=== PATIENT | male | born 1940 | race Two or more races ===

== ENCOUNTER 2016-08-26 19:30 | Inpatient (IN) | payer MEDICARE, OTHER ==
[~2016-08-26] VITALS: Ht 177.8 cm; Wt 99.8 kg
[~2016-08-26 19:30] MED LIST: ACET-2605 PO; ALBU2.5V38 NEB; AMIN30LI4 PO; ATOR10TA GT; BISA10SU61 RC; CHLO15MO2 MM; DOCU-170 PO; DRON400T2 GT; ERYT200S16 PO; IPRA0.2S49 NEB; IPRA0.2S9 IH; MAGN400O6 GT; METF500T PO; MONT10TA22 GT; NA P133E RC; POTA20PA15 PO; RIVA10TA PO; SPIR50TA3 PO; TRAM50TA2 PO; TYL2T GT
[2016-08-26] MEDS ORDERED: IV NS 0.9% 500 ML BAG IV ONE (20:00)
[2016-08-26] MEDS ORDERED: IV NS 0.9% 500 ML IV ONE (20:07)
[2016-08-26] MEDS ORDERED: IV SET PRIMARY 1 EA INFUS.SET MC ONE ×2 (20:07→21:17)
[2016-08-26 20:44] LABS: KETONES,URINE NEGATIVE (NEGATIVE); LEUKOCYTE ESTERASE ,URINE 3+ (NEGATIVE)
[2016-08-26 20:47] LABS: ADD UA MICROSCOPIC YES
[2016-08-26 20:51] LABS: ADD URINE CULTURE YES; WBC,URINE 21-50 /HPF (0-3)
[2016-08-26 20:53] LABS: INR 1.1 (0.87-1.13); PROTHROMBIN TIME 11.9 SECS (9.5-12.7)
[2016-08-26 20:58] LABS: ALANINE AMINOTRANSFERASE 15 U/L (12-78); ALBUMIN 1.8 g/dL (3.4-5.0); ANION GAP 12 (5-14); ASPARTATE AMINOTRANSFERASE 14 U/L (15-37); BILIRUBIN,DIRECT 0.1 mg/dL (0.0-0.2); BILIRUBIN,TOTAL 0.3 mg/dL (0.2-1.0); CALCIUM, SERUM 8.6 mg/dL (8.5-10.1); CARBON DIOXIDE 27 mmol/L (21-32); CHLORIDE 110 mmol/L (98-107); CREATININE 1.4 mg/dL (0.6-1.3); GLUCOSE 95 mg/dL (74-106); INDIRECT BILIRUBIN 0.2 mg/dL (0.0-1.1); POTASSIUM 3.7 mmol/L (3.5-5.1); SODIUM SERUM 145 mmol/L (136-145); TOTAL PROTEIN, SERUM 7.5 g/dL (6.4-8.2); UREA NITROGEN, BLOOD 36 mg/dL (7-18)
[2016-08-26 20:59] LABS: TROPONIN I < 0.017 ng/mL (0.00-0.056)
[2016-08-26 21:03] LABS: BASOPHILS % (AUTO) 0.1 % (0.0-2.0); DIFF TOTAL % 100 %; EOSINOPHILS # (AUTO) 0.3 /CMM (0.0-0.7); EOSINOPHILS % (AUTO) 1.5 % (0.0-6.0); HEMATOCRIT 31 % (39-51); HEMOGLOBIN 9.7 g/dL (13.5-17.5); LYMPHOCYTES # (AUTO) 1.3 /CMM (0.8-4.8); LYMPHOCYTES % (AUTO) 7.6 % (20.0-44.0); MEAN CORPUSCULAR HEMOGLOBIN 28 PG (26.0-33.0); MEAN CORPUSCULAR HGB CONC 31 g/dl (31.0-36.0); MEAN CORPUSCULAR VOLUME 89 fL (80-96); MONOCYTES % (AUTO) 5.8 % (2.0-12.0); PLATELET COUNT (AUTO) 450 /CMM (150-450); RED BLOOD CELL COUNT(AUTO) 3.54 MIL/uL (4.5-6.0); WHITE BLOOD COUNT (AUTO) 17.6 K/uL (4.3-11.0)
[2016-08-26 21:05] LABS: THYROID STIMULATING HORMONE 1.387 uIU/mL (0.358-3.74)
[2016-08-26] MEDS ORDERED: IV SET PRIMARY PUMP SET 1 EA INFUS.SET MC ONE (21:17)
[2016-08-26] MEDS ORDERED: IV NS 0.9% 1,000 ML ONE (21:17)
[2016-08-26] MEDS ORDERED: LEVOFLOXACIN 750 MG /D5W 150ML 150 ML IV ONE (21:17)
[2016-08-26 21:23] LABS: BAND % (MANUAL) 6 % (0.0-5.0); EOSINOPHILS % (MANUAL) 4 % (0-4); LYMPHOCYTES % (MANUAL) 19 % (16-48)
[2016-08-26 21:24] LABS: ANISOCYTOSIS 1+; PLATELET ESTIMATE INCREASED
[2016-08-26] MEDS ORDERED: IV NS 0.9% 1,000 ML IV ONE (21:30)
[2016-08-26] MEDS ORDERED: LEVOFLOXACIN 750 MG /D5W 150ML PIGGYBACK IV ONE (21:30)
[2016-08-26] MEDS ORDERED: VITA1TAB20 GT (22:01)
[2016-08-26] MEDS ORDERED: LORA10TA7 PO (22:01)
[2016-08-26 22:18] LABS: ABG HCO3 21.8 mmol/L; ABG PCO2 54.9 mmHg (35.0-45.0); ABG PH 7.216 (7.350-7.450); ABG PO2 116.8 mmHg (75.0-100.0); ABG TOTAL HEMOGLOBIN 9.5 G/dL (13.5-18.0); ALLEN TEST Pass; AaDO2 105.3 mmHg; O2Hb 97.1 % (94.0-97.0)
[2016-08-26 23:30] VITALS: BP 106/59
[2016-08-27] VITALS (8 sets, daily range): BP systolic 90–121; BP diastolic 47–62
[2016-08-27] MEDS ORDERED: IV SET PRIMARY PUMP SET 1 EA INFUS.SET MC ONE (00:35)
[2016-08-27] MEDS ORDERED: SECONDARY IV SET 1 EA INFUS.SET MC ONE ×4 (00:36→18:12)
[2016-08-27] MEDS ORDERED: IV NS 0.9% 1,000 ML ONE (00:37)
[2016-08-27] MEDS ORDERED: MEROPENEM 500 MG VIAL IV ONE (00:41)
[2016-08-27] MEDS ORDERED: IV NS 0.9% 50 ML IV ONE (00:53)
[2016-08-27] MEDS ORDERED: MEROPENEM 500 MG in IV NS 0.9% 50 ML IV SCH (01:00)
[2016-08-27] MEDS: IV NS 0.9% 1,000 ML IV SCH ×2 (01:03→14:13)
[2016-08-27] MEDS: MEROPENEM 500 MG in IV NS 0.9% 50 ML IV SCH ×4 (01:04→17:02)
[2016-08-27 06:48] LABS: BASOPHILS % (AUTO) 0.3 % (0.0-2.0); DIFF TOTAL % 100 %; EOSINOPHILS # (AUTO) 0.2 /CMM (0.0-0.7); EOSINOPHILS % (AUTO) 1.6 % (0.0-6.0); HEMATOCRIT 26 % (39-51); HEMOGLOBIN 8.1 g/dL (13.5-17.5); LYMPHOCYTES # (AUTO) 1.2 /CMM (0.8-4.8); LYMPHOCYTES % (AUTO) 8.5 % (20.0-44.0); MEAN CORPUSCULAR HEMOGLOBIN 28 PG (26.0-33.0); MEAN CORPUSCULAR HGB CONC 32 g/dl (31.0-36.0); MEAN CORPUSCULAR VOLUME 88 fL (80-96); NEUTROPHILS % (AUTO) 82.6 % (43.0-81.0); PLATELET COUNT (AUTO) 393 /CMM (150-450); RED BLOOD CELL COUNT(AUTO) 2.94 MIL/uL (4.5-6.0); WHITE BLOOD COUNT (AUTO) 14.5 K/uL (4.3-11.0)
[2016-08-27 06:55] LABS: CALCIUM, SERUM 8.2 mg/dL (8.5-10.1); CREATININE 1.3 mg/dL (0.6-1.3); POTASSIUM 3.2 mmol/L (3.5-5.1)
[2016-08-27 07:31] LABS: KETONES,URINE NEGATIVE (NEGATIVE); LEUKOCYTE ESTERASE ,URINE 3+ (NEGATIVE)
[2016-08-27 07:32] LABS: ADD UA MICROSCOPIC YES
[2016-08-27 08:27] LABS: WBC,URINE 21-50 /HPF (0-3)
[2016-08-27 08:28] LABS: ADD URINE CULTURE YES; HYALINE CASTS, URINE Few /LPF (None Seen)
[2016-08-27] MEDS ORDERED: ALBUTEROL FS 2.5 MG/3 ML VIAL.NEB NEB PRN (08:30)
[2016-08-27] MEDS ORDERED: ACETAMINOPHEN 325 MG TABLET PO PRN (08:30)
[2016-08-27] MEDS ORDERED: IPRATROPIUM NEB FS 0.5 MG/2.5 ML AMPUL.NEB NEB PRN (08:30)
[2016-08-27] MEDS ORDERED: ACETAMINOPHEN ES 500 MG TABLET PO PRN (09:00)
[2016-08-27] MEDS: CHLORHEXIDINE GLUCONATE 15 ML UDC MM SCH ×2 (10:24→21:41)
[2016-08-27] MEDS: TRAMADOL HCL 50 MG TABLET PO SCH ×2 (10:25→21:40)
[2016-08-27] MEDS: MONTELUKAST SODIUM (10MG) 10 MG TABLET PO SCH (10:25)
[2016-08-27] MEDS: VITAMIN B COMP W-C 1 TAB TABLET PO SCH (10:25)
[2016-08-27] MEDS: DRONEDARONE HYDROCHLORIDE 400 MG TABLET PO SCH ×2 (10:25→17:02)
[2016-08-27] MEDS: Z GUARD REMEDY 2 OZ OINT TP SCH ×2 (10:32→21:49)
[2016-08-27] MEDS: METFORMIN 500 MG TABLET PO SCH (10:33)
[2016-08-27 11:02] LABS: BAND % (MANUAL) 4 % (0.0-5.0); LYMPHOCYTES % (MANUAL) 9 % (16-48)
[2016-08-27 11:03] LABS: ANISOCYTOSIS 1+; EOSINOPHILS % (MANUAL) 2 % (0-4); PLATELET ESTIMATE ADEQUATE
[2016-08-27] MEDS: IPRATROPIUM NEB FS 0.5 MG/2.5 ML AMPUL.NEB IH SCH ×2 (13:33→19:53)
[2016-08-27] MEDS: ALBUTEROL FS 2.5 MG/3 ML VIAL.NEB NEB SCH ×2 (13:33→19:53)
[2016-08-27 13:52] LABS: ABG BASE EXCESS -6.9 mmol/L; ABG HCO3 21.3 mmol/L; ABG PCO2 55.9 mmHg (35.0-45.0); ABG PH 7.198 (7.350-7.450); ABG PO2 109.4 mmHg (75.0-100.0); ABG TOTAL HEMOGLOBIN 10.5 G/dL (13.5-18.0); ALLEN TEST Pass; AaDO2 111.5 mmHg; O2Hb 96.3 % (94.0-97.0)
[2016-08-27] MEDS: POTASSIUM CHLORIDE 20 MEQ TAB.PRT.SR PO SCH (14:14)
[2016-08-27] MEDS: HYDROGEL DRESSING 90 GM TUBE TP SCH (14:15)
[2016-08-27] MEDS ORDERED: RIVAROXABAN 10 MG TABLET PO SCH (17:00)
[2016-08-27] MEDS: HYDROGEL DRESSING 90 GM TUBE TP PRN (17:02)
[2016-08-27] MEDS: methylPREDNISolone SOD SUCC 40 MG/ML VIAL IV SCH (17:02)
[2016-08-27] MEDS ORDERED: FEE PK DOSING 1 MIN EA MC ONE (17:08)
[2016-08-27] MEDS ORDERED: VANCOMYCIN 1 GM in IV D5W 250 ML IV SCH (18:00)
[2016-08-27] MEDS: DOCUSATE SODIUM 100 MG CAPSULE PO SCH (21:38)
[2016-08-27] MEDS: ATORVASTATIN 10 MG TABLET PO SCH (21:41)
[2016-08-28] VITALS: BP 95/45
[2016-08-28] MEDS: IPRATROPIUM NEB FS 0.5 MG/2.5 ML AMPUL.NEB IH SCH ×4 (01:37→20:22)
[2016-08-28] MEDS: ALBUTEROL FS 2.5 MG/3 ML VIAL.NEB NEB SCH ×4 (01:37→20:22)
[2016-08-28] MEDS: MEROPENEM 500 MG in IV NS 0.9% 50 ML IV SCH ×3 (03:10→17:10)
[2016-08-28 04:00] VITALS: BP 90/37
[2016-08-28 06:59] LABS: BASOPHILS % (AUTO) 0.3 % (0.0-2.0); DIFF TOTAL % 100 %; EOSINOPHILS # (AUTO) 0.5 /CMM (0.0-0.7); EOSINOPHILS % (AUTO) 3.4 % (0.0-6.0); HEMATOCRIT 26 % (39-51); HEMOGLOBIN 8.1 g/dL (13.5-17.5); LYMPHOCYTES % (AUTO) 13.3 % (20.0-44.0); MEAN CORPUSCULAR HEMOGLOBIN 28 PG (26.0-33.0); MEAN CORPUSCULAR HGB CONC 31 g/dl (31.0-36.0); MEAN CORPUSCULAR VOLUME 88 fL (80-96); MONOCYTES # (AUTO) 1.3 /CMM (0.1-1.30); MONOCYTES % (AUTO) 8.7 % (2.0-12.0); NEUTROPHILS # (AUTO) 11.4 /CMM (1.8-8.9); NEUTROPHILS % (AUTO) 74.3 % (43.0-81.0); PLATELET COUNT (AUTO) 341 /CMM (150-450); RED BLOOD CELL COUNT(AUTO) 2.94 MIL/uL (4.5-6.0); WHITE BLOOD COUNT (AUTO) 15.4 K/uL (4.3-11.0)
[2016-08-28] MEDS: VANCOMYCIN 0.75 GM in IV D5W 250 ML IV SCH ×2 (07:17→17:49)
[2016-08-28 07:31] LABS: CALCIUM, SERUM 7.8 mg/dL (8.5-10.1); CREATININE 1.4 mg/dL (0.6-1.3)
[2016-08-28 08:00] VITALS: BP 108/58
[2016-08-28] MEDS: VITAMIN B COMP W-C 1 TAB TABLET PO SCH (08:30)
[2016-08-28] MEDS: methylPREDNISolone SOD SUCC 40 MG/ML VIAL IV SCH ×3 (08:30→16:12)
[2016-08-28] MEDS: MONTELUKAST SODIUM (10MG) 10 MG TABLET PO SCH (08:30)
[2016-08-28] MEDS: CHLORHEXIDINE GLUCONATE 15 ML UDC MM SCH ×2 (08:30→21:49)
[2016-08-28] MEDS: METFORMIN 500 MG TABLET PO SCH (08:30)
[2016-08-28] MEDS: TRAMADOL HCL 50 MG TABLET PO SCH ×2 (08:30→21:49)
[2016-08-28] MEDS: DRONEDARONE HYDROCHLORIDE 400 MG TABLET PO SCH ×2 (08:30→16:12)
[2016-08-28] MEDS: Z GUARD REMEDY 2 OZ OINT TP SCH ×2 (08:33→21:48)
[2016-08-28] MEDS: HYDROGEL DRESSING 90 GM TUBE TP SCH (08:34)
[2016-08-28] MEDS: IV NS 0.9% 1,000 ML IV SCH (11:10)
[2016-08-28] MEDS ORDERED: SECONDARY IV SET 1 EA INFUS.SET MC ONE (11:33)
[2016-08-28] MEDS: POTASSIUM CHLORIDE 20 MEQ TAB.PRT.SR PO SCH ×3 (11:38→13:06)
[2016-08-28] MEDS: Magnesium 1GM/D5W 100ML PREMIX 100 ML IV SCH ×2 (11:40→12:42)
[2016-08-28 11:43] LABS: BAND % (MANUAL) 2 % (0.0-5.0); LYMPHOCYTES % (MANUAL) 18 % (16-48)
[2016-08-28 11:44] LABS: ANISOCYTOSIS 1+; EOSINOPHILS % (MANUAL) 2 % (0-4); METAMYELOCYTES % 4 % (0-0); MYELOCYTES % 1 % (0-0); PLATELET ESTIMATE ADEQUATE
[2016-08-28 12:00] VITALS: BP 96/55
[2016-08-28 16:00] VITALS: BP 109/64
[2016-08-28] MEDS: LACTOBACILLUS RHAMNOSUS GG 1 EACH CAP.SPRINK PO SCH (16:12)
[2016-08-28] MEDS ORDERED: RIVAROXABAN 10 MG TABLET PO SCH (17:00)
[2016-08-28 20:00] VITALS: BP 95/46
[2016-08-28] MEDS: ATORVASTATIN 10 MG TABLET PO SCH (21:47)
[2016-08-28] MEDS: DOCUSATE SODIUM 100 MG CAPSULE PO SCH (21:47)
[2016-08-29] VITALS: BP 110/60
[2016-08-29] MEDS ORDERED: ONDANSETRON HCL/PF 4 MG/2 ML VIAL IV PRN (01:00)
[2016-08-29] MEDS: IPRATROPIUM NEB FS 0.5 MG/2.5 ML AMPUL.NEB IH SCH ×4 (01:39→19:30)
[2016-08-29] MEDS: ALBUTEROL FS 2.5 MG/3 ML VIAL.NEB NEB SCH ×4 (01:39→19:30)
[2016-08-29] MEDS: MEROPENEM 500 MG in IV NS 0.9% 50 ML IV SCH ×3 (02:30→17:24)
[2016-08-29 04:00] VITALS: BP 125/57
[2016-08-29] MEDS: VANCOMYCIN 0.75 GM in IV D5W 250 ML IV SCH (06:00)
[2016-08-29 07:15] LABS: DIFF TOTAL % 100 %; HEMATOCRIT 25 % (39-51); LYMPHOCYTES # (AUTO) 1.2 /CMM (0.8-4.8); MEAN CORPUSCULAR HEMOGLOBIN 28 PG (26.0-33.0); MEAN CORPUSCULAR HGB CONC 32 g/dl (31.0-36.0); MEAN CORPUSCULAR VOLUME 87 fL (80-96); MONOCYTES # (AUTO) 0.7 /CMM (0.1-1.30); MONOCYTES % (AUTO) 3.2 % (2.0-12.0); NEUTROPHILS # (AUTO) 18.9 /CMM (1.8-8.9); NEUTROPHILS % (AUTO) 90.8 % (43.0-81.0); PLATELET COUNT (AUTO) 345 /CMM (150-450); RED BLOOD CELL COUNT(AUTO) 2.83 MIL/uL (4.5-6.0); WHITE BLOOD COUNT (AUTO) 20.8 K/uL (4.3-11.0)
[2016-08-29 07:42] LABS: CALCIUM, SERUM 7.9 mg/dL (8.5-10.1); CREATININE 1.2 mg/dL (0.6-1.3); PHOSPHORUS 2.2 mg/dL (2.5-4.9); POTASSIUM 3.3 mmol/L (3.5-5.1)
[2016-08-29 08:00] VITALS: BP 141/59
[2016-08-29 08:05] LABS: BAND % (MANUAL) 6 % (0.0-5.0); LYMPHOCYTES % (MANUAL) 3 % (16-48); METAMYELOCYTES % 1 % (0-0); PLATELET ESTIMATE ADEQUATE
[2016-08-29] MEDS: VITAMIN B COMP W-C 1 TAB TABLET PO SCH (09:00)
[2016-08-29] MEDS: DRONEDARONE HYDROCHLORIDE 400 MG TABLET PO SCH ×2 (09:00→17:00)
[2016-08-29] MEDS: HYDROGEL DRESSING 90 GM TUBE TP SCH (09:00)
[2016-08-29] MEDS: LACTOBACILLUS RHAMNOSUS GG 1 EACH CAP.SPRINK PO SCH ×2 (09:00→17:00)
[2016-08-29] MEDS: CHLORHEXIDINE GLUCONATE 15 ML UDC MM SCH ×2 (09:00→21:14)
[2016-08-29] MEDS: MONTELUKAST SODIUM (10MG) 10 MG TABLET PO SCH (09:00)
[2016-08-29] MEDS: Z GUARD REMEDY 2 OZ OINT TP SCH ×2 (09:00→21:15)
[2016-08-29] MEDS: TRAMADOL HCL 50 MG TABLET PO SCH ×2 (09:00→21:14)
[2016-08-29] MEDS: methylPREDNISolone SOD SUCC 40 MG/ML VIAL IV SCH ×2 (09:32→12:41)
[2016-08-29] MEDS: IV NS 0.9% 1,000 ML IV SCH ×2 (09:43→15:27)
[2016-08-29] MEDS ORDERED: METOCLOPRAMIDE HCL 10 MG/2 ML VIAL IV STA (11:19)
[2016-08-29] MEDS: PANTOPRAZOLE 40 MG VIAL IV SCH (11:29)
[2016-08-29 12:00] VITALS: BP 133/69
[2016-08-29] MEDS: POTASSIUM CL. PREMIX PERIPHER. 50 ML IV SCH ×2 (12:41→15:27)
[2016-08-29] MEDS ORDERED: ROCURONIUM BROMIDE 50 MG/5 ML ONE (14:16)
[2016-08-29 16:00] VITALS: BP 127/58
[2016-08-29] MEDS ORDERED: NEUTRA PHOS 1 POWD.PACKET NG ONE (16:00)
[2016-08-29 19:45] LABS: HEMATOCRIT 27 % (39-51); HEMOGLOBIN 8.4 g/dL (13.5-17.5); MEAN CORPUSCULAR HEMOGLOBIN 28 PG (26.0-33.0); MEAN CORPUSCULAR HGB CONC 32 g/dl (31.0-36.0); MEAN CORPUSCULAR VOLUME 87 fL (80-96); PLATELET COUNT (AUTO) 373 /CMM (150-450); RED BLOOD CELL COUNT(AUTO) 3.03 MIL/uL (4.5-6.0); WHITE BLOOD COUNT (AUTO) 22.3 K/uL (4.3-11.0)
[2016-08-29 20:00] VITALS: BP 102/58
[2016-08-29] MEDS: DOCUSATE SODIUM 100 MG CAPSULE PO SCH (21:14)
[2016-08-29] MEDS: VANCOMYCIN 1 GM in IV D5W 250 ML IV SCH (21:15)
[2016-08-29] MEDS: ATORVASTATIN 10 MG TABLET PO SCH (21:15)
[2016-08-30] VITALS (7 sets, daily range): BP systolic 77–125; BP diastolic 40–68
[2016-08-30] MEDS: ALBUTEROL FS 2.5 MG/3 ML VIAL.NEB NEB SCH ×3 (01:01→14:07)
[2016-08-30] MEDS: IPRATROPIUM NEB FS 0.5 MG/2.5 ML AMPUL.NEB IH SCH ×4 (01:01→19:53)
[2016-08-30] MEDS: MEROPENEM 500 MG in IV NS 0.9% 50 ML IV SCH ×3 (01:59→17:02)
[2016-08-30] MEDS: IV NS 0.9% 1,000 ML IV SCH ×2 (06:09→21:28)
[2016-08-30 07:11] LABS: CALCIUM, SERUM 8.1 mg/dL (8.5-10.1); CREATININE 1.1 mg/dL (0.6-1.3); PHOSPHORUS 3.3 mg/dL (2.5-4.9)
[2016-08-30] MEDS: DRONEDARONE HYDROCHLORIDE 400 MG TABLET PO SCH ×2 (09:00→16:33)
[2016-08-30] MEDS: TRAMADOL HCL 50 MG TABLET PO SCH ×2 (09:00→21:24)
[2016-08-30] MEDS: CHLORHEXIDINE GLUCONATE 15 ML UDC MM SCH ×2 (09:19→21:23)
[2016-08-30] MEDS: methylPREDNISolone SOD SUCC 40 MG/ML VIAL IV SCH (09:19)
[2016-08-30] MEDS: VITAMIN B COMP W-C 1 TAB TABLET PO SCH (09:19)
[2016-08-30] MEDS: LACTOBACILLUS RHAMNOSUS GG 1 EACH CAP.SPRINK PO SCH ×2 (09:19→16:33)
[2016-08-30] MEDS: MONTELUKAST SODIUM (10MG) 10 MG TABLET PO SCH (09:19)
[2016-08-30 09:20] LABS: ABG BASE EXCESS -1.4 mmol/L; ABG HCO3 25.9 mmol/L; ABG PCO2 58.1 mmHg (35.0-45.0); ABG PH 7.267 (7.350-7.450); ABG PO2 112.6 mmHg (75.0-100.0); ABG TOTAL HEMOGLOBIN 9.1 G/dL (13.5-18.0); ALLEN TEST Pass; AaDO2 105.8 mmHg
[2016-08-30] MEDS: HYDROGEL DRESSING 90 GM TUBE TP PRN (09:20)
[2016-08-30] MEDS: Z GUARD REMEDY 2 OZ OINT TP SCH ×2 (09:20→21:24)
[2016-08-30] MEDS: HYDROGEL DRESSING 90 GM TUBE TP SCH (09:21)
[2016-08-30] MEDS: PANTOPRAZOLE 40 MG VIAL IV SCH (10:30)
[2016-08-30 13:23] LABS: IRON, SERUM 36 ug/dl (50-175); PERCENT SATURATION 26 % (14-33); TOTAL IRON BINDING CAPACITY 139 ug/dl (250-450)
[2016-08-30 13:30] LABS: TROPONIN I < 0.017 ng/mL (0.00-0.056)
[2016-08-30] MEDS ORDERED: LEVALBUTEROL HCL NEB 1.25 MG/0.5 ML VIAL.NEB IH SCH (17:30)
[2016-08-30] MEDS: ALBUTEROL FS 2.5 MG/0.5 ML VIAL.NEB NEB SCH ×2 (19:53→22:53)
[2016-08-30] MEDS: VANCOMYCIN 1 GM in IV D5W 250 ML IV SCH (20:58)
[2016-08-30] MEDS: ATORVASTATIN 10 MG TABLET PO SCH (21:23)
[2016-08-30] MEDS: DOCUSATE SODIUM 100 MG CAPSULE PO SCH (21:24)
[2016-08-31] VITALS: BP_SYST 80; BP_SYST 90; BP_DIAS 28; BP_DIAS 38
[2016-08-31] MEDS: IPRATROPIUM NEB FS 0.5 MG/2.5 ML AMPUL.NEB IH SCH ×4 (01:20→19:48)
[2016-08-31] MEDS: MEROPENEM 500 MG in IV NS 0.9% 50 ML IV SCH ×3 (02:50→17:00)
[2016-08-31] MEDS: ALBUTEROL FS 2.5 MG/0.5 ML VIAL.NEB NEB SCH ×6 (02:58→23:39)
[2016-08-31 04:00] VITALS: BP 91/28
[2016-08-31 05:44] LABS: CALCIUM, SERUM 7.6 mg/dL (8.5-10.1); CREATININE 1.2 mg/dL (0.6-1.3); POTASSIUM 3.1 mmol/L (3.5-5.1)
[2016-08-31] MEDS: TRAMADOL HCL 50 MG TABLET PO PRN (05:57)
[2016-08-31] MEDS: IV NS 0.9% 1,000 ML IV SCH ×2 (07:12→23:53)
[2016-08-31 08:00] VITALS: BP 112/47
[2016-08-31] MEDS: DRONEDARONE HYDROCHLORIDE 400 MG TABLET PO SCH ×2 (08:21→17:00)
[2016-08-31] MEDS: methylPREDNISolone SOD SUCC 40 MG/ML VIAL IV SCH (08:21)
[2016-08-31] MEDS: MONTELUKAST SODIUM (10MG) 10 MG TABLET PO SCH (08:21)
[2016-08-31] MEDS: LACTOBACILLUS RHAMNOSUS GG 1 EACH CAP.SPRINK PO SCH ×2 (08:21→17:00)
[2016-08-31] MEDS: CHLORHEXIDINE GLUCONATE 15 ML UDC MM SCH ×2 (08:21→21:19)
[2016-08-31] MEDS: TRAMADOL HCL 50 MG TABLET PO SCH ×2 (08:22→21:21)
[2016-08-31] MEDS: VITAMIN B COMP W-C 1 TAB TABLET PO SCH (08:22)
[2016-08-31] MEDS: HYDROGEL DRESSING 90 GM TUBE TP SCH (08:25)
[2016-08-31] MEDS: Z GUARD REMEDY 2 OZ OINT TP SCH ×2 (09:05→21:00)
[2016-08-31] MEDS ORDERED: SECONDARY IV SET 1 EA INFUS.SET MC ONE (09:34)
[2016-08-31] MEDS: POTASSIUM CL. PREMIX PERIPHER. 50 ML IV SCH ×6 (09:38→15:55)
[2016-08-31] MEDS: PANTOPRAZOLE 40 MG VIAL IV SCH (11:40)
[2016-08-31 12:00] VITALS: BP 103/58
[2016-08-31 16:00] VITALS: BP 109/52
[2016-08-31 20:00] VITALS: BP 115/43
[2016-08-31] MEDS: VANCOMYCIN 1 GM in IV D5W 250 ML IV SCH (20:30)
[2016-08-31] MEDS: GLYTROL 1,000 ML BAG GT PRN (21:15)
[2016-08-31] MEDS: DOCUSATE SODIUM 100 MG CAPSULE PO SCH (21:19)
[2016-08-31] MEDS: ATORVASTATIN 10 MG TABLET PO SCH (21:19)
[2016-09-01] VITALS (7 sets, daily range): BP systolic 94–109; BP diastolic 48–73
[2016-09-01] MEDS: IPRATROPIUM NEB FS 0.5 MG/2.5 ML AMPUL.NEB IH SCH ×2 (01:49→07:13)
[2016-09-01] MEDS: MEROPENEM 500 MG in IV NS 0.9% 50 ML IV SCH ×3 (01:53→17:00)
[2016-09-01] MEDS: ALBUTEROL FS 2.5 MG/0.5 ML VIAL.NEB NEB SCH ×7 (03:18→23:58)
[2016-09-01] MEDS: IV NS 0.9% 1,000 ML IV SCH ×2 (06:50→15:46)
[2016-09-01 06:55] LABS: CALCIUM, SERUM 7.7 mg/dL (8.5-10.1); POTASSIUM 3.9 mmol/L (3.5-5.1)
[2016-09-01] MEDS: methylPREDNISolone SOD SUCC 40 MG/ML VIAL IV SCH (08:29)
[2016-09-01] MEDS: CHLORHEXIDINE GLUCONATE 15 ML UDC MM SCH ×2 (08:29→21:00)
[2016-09-01] MEDS: MONTELUKAST SODIUM (10MG) 10 MG TABLET PO SCH (08:29)
[2016-09-01] MEDS: VITAMIN B COMP W-C 1 TAB TABLET PO SCH (08:29)
[2016-09-01] MEDS: TRAMADOL HCL 50 MG TABLET PO SCH ×2 (08:29→21:02)
[2016-09-01] MEDS: Z GUARD REMEDY 2 OZ OINT TP SCH ×2 (08:30→21:00)
[2016-09-01] MEDS: DRONEDARONE HYDROCHLORIDE 400 MG TABLET PO SCH ×2 (08:30→16:14)
[2016-09-01] MEDS: HYDROGEL DRESSING 90 GM TUBE TP SCH (08:31)
[2016-09-01] MEDS: LACTOBACILLUS RHAMNOSUS GG 1 EACH CAP.SPRINK PO SCH ×2 (08:31→16:15)
[2016-09-01] MEDS: GLYTROL 1,000 ML BAG GT PRN ×2 (10:04→21:10)
[2016-09-01] MEDS: IPRATROPIUM NEB FS 0.5 MG/2.5 ML AMPUL.NEB NEB SCH ×4 (10:58→23:58)
[2016-09-01] MEDS: PANTOPRAZOLE 40 MG VIAL IV SCH (11:02)
[2016-09-01] MEDS: VANCOMYCIN 1 GM in IV D5W 250 ML IV SCH (19:56)
[2016-09-01] MEDS: ATORVASTATIN 10 MG TABLET PO SCH (21:01)
[2016-09-01] MEDS: DOCUSATE SODIUM 100 MG CAPSULE PO SCH (21:01)
[2016-09-02 01:00] VITALS: BP 90/49
[2016-09-02] MEDS: MEROPENEM 500 MG in IV NS 0.9% 50 ML IV SCH ×3 (02:08→18:06)
[2016-09-02] MEDS: IV NS 0.9% 1,000 ML IV SCH (02:13)
[2016-09-02] MEDS: ALBUTEROL FS 2.5 MG/0.5 ML VIAL.NEB NEB SCH ×6 (03:36→23:49)
[2016-09-02] MEDS: IPRATROPIUM NEB FS 0.5 MG/2.5 ML AMPUL.NEB NEB SCH ×6 (03:36→23:47)
[2016-09-02 04:00] VITALS: BP 90/52
[2016-09-02 07:26] LABS: BASOPHILS % (AUTO) 0.1 % (0.0-2.0); DIFF TOTAL % 100 %; EOSINOPHILS # (AUTO) 0.4 /CMM (0.0-0.7); EOSINOPHILS % (AUTO) 2.1 % (0.0-6.0); HEMATOCRIT 22 % (39-51); LYMPHOCYTES # (AUTO) 1.8 /CMM (0.8-4.8); LYMPHOCYTES % (AUTO) 9.5 % (20.0-44.0); MEAN CORPUSCULAR HEMOGLOBIN 27 PG (26.0-33.0); MEAN CORPUSCULAR HGB CONC 31 g/dl (31.0-36.0); MEAN CORPUSCULAR VOLUME 88 fL (80-96); MONOCYTES # (AUTO) 0.6 /CMM (0.1-1.30); MONOCYTES % (AUTO) 3.3 % (2.0-12.0); PLATELET COUNT (AUTO) 328 /CMM (150-450); RED BLOOD CELL COUNT(AUTO) 2.55 MIL/uL (4.5-6.0); WHITE BLOOD COUNT (AUTO) 18.9 K/uL (4.3-11.0)
[2016-09-02 07:48] LABS: CREATININE 0.7 mg/dL (0.6-1.3); POTASSIUM 3.1 mmol/L (3.5-5.1)
[2016-09-02 08:00] VITALS: BP 83/49
[2016-09-02] MEDS: DRONEDARONE HYDROCHLORIDE 400 MG TABLET PO SCH ×2 (09:47→18:05)
[2016-09-02] MEDS: VITAMIN B COMP W-C 1 TAB TABLET PO SCH (09:47)
[2016-09-02] MEDS: LACTOBACILLUS RHAMNOSUS GG 1 EACH CAP.SPRINK PO SCH ×2 (09:47→18:05)
[2016-09-02] MEDS: methylPREDNISolone SOD SUCC 40 MG/ML VIAL IV SCH (09:47)
[2016-09-02] MEDS: TRAMADOL HCL 50 MG TABLET PO SCH ×2 (09:47→21:16)
[2016-09-02] MEDS: CHLORHEXIDINE GLUCONATE 15 ML UDC MM SCH ×2 (09:47→21:16)
[2016-09-02] MEDS: MONTELUKAST SODIUM (10MG) 10 MG TABLET PO SCH (09:47)
[2016-09-02] MEDS: HYDROGEL DRESSING 90 GM TUBE TP SCH (09:47)
[2016-09-02] MEDS: Z GUARD REMEDY 2 OZ OINT TP SCH ×2 (09:48→21:17)
[2016-09-02] MEDS: GLYTROL 1,000 ML BAG GT PRN (09:58)
[2016-09-02] MEDS ORDERED: IV D5/0.45 NACL 1,000 ML IV ONE (11:30)
[2016-09-02] MEDS ORDERED: SECONDARY IV SET 1 EA INFUS.SET MC ONE ×2 (11:54→17:50)
[2016-09-02 12:00] VITALS: BP 95/59
[2016-09-02] MEDS ORDERED: IV D5/0.45 NACL 1,000 ML IV PRN (12:00)
[2016-09-02] MEDS: PANTOPRAZOLE 40 MG VIAL IV SCH (12:01)
[2016-09-02] MEDS: POTASSIUM CL. PREMIX PERIPHER. 50 ML IV SCH ×4 (12:02→15:54)
[2016-09-02] MEDS ORDERED: GLYTROL 1,000 ML BAG GT PRN (12:30)
[2016-09-02] MEDS ORDERED: FUROSEMIDE 20 MG/2 ML VIAL IV ONE (13:05)
[2016-09-02] MEDS ORDERED: IV NS 0.9% 250 ML IV ONE (13:10)
[2016-09-02] MEDS: DIGOXIN INJ 0.5 MG/2 ML AMPUL IV SCH ×2 (13:21→18:05)
[2016-09-02] MEDS ORDERED: FEE PK DOSING 1 MIN EA MC ONE (15:39)
[2016-09-02 16:00] VITALS: BP 99/57
[2016-09-02] MEDS ORDERED: Magnesium 1GM/D5W 100ML PREMIX 100 ML IV SCH (17:00)
[2016-09-02] MEDS ORDERED: IV SET PRIMARY PUMP SET 1 EA INFUS.SET MC ONE (17:47)
[2016-09-02] MEDS: Magnesium 1GM/D5W 100ML PREMIX 100 ML IV SCH ×2 (18:05→18:57)
[2016-09-02] MEDS: GENTAMICIN 120 MG in IV D5W 100 ML IV SCH (18:06)
[2016-09-02 20:00] VITALS: BP 107/58
[2016-09-02] MEDS: ATORVASTATIN 10 MG TABLET PO SCH (21:16)
[2016-09-02] MEDS: DOCUSATE SODIUM 100 MG CAPSULE PO SCH (21:16)
[2016-09-03] VITALS (11 sets, daily range): BP systolic 100–135; BP diastolic 46–76
[2016-09-03] MEDS: MEROPENEM 500 MG in IV NS 0.9% 50 ML IV SCH ×3 (02:26→18:24)
[2016-09-03] MEDS: IPRATROPIUM NEB FS 0.5 MG/2.5 ML AMPUL.NEB NEB SCH ×6 (03:03→23:27)
[2016-09-03] MEDS: ALBUTEROL FS 2.5 MG/0.5 ML VIAL.NEB NEB SCH ×6 (03:03→23:26)
[2016-09-03] MEDS: GENTAMICIN 120 MG in IV D5W 100 ML IV SCH ×2 (04:16→16:58)
[2016-09-03 07:43] LABS: DIFF TOTAL % 100 %; EOSINOPHILS # (AUTO) 0.6 /CMM (0.0-0.7); EOSINOPHILS % (AUTO) 2.5 % (0.0-6.0); HEMATOCRIT 23 % (39-51); HEMOGLOBIN 7.1 g/dL (13.5-17.5); LYMPHOCYTES # (AUTO) 1.9 /CMM (0.8-4.8); LYMPHOCYTES % (AUTO) 8.4 % (20.0-44.0); MEAN CORPUSCULAR HEMOGLOBIN 27 PG (26.0-33.0); MEAN CORPUSCULAR HGB CONC 30 g/dl (31.0-36.0); MEAN CORPUSCULAR VOLUME 88 fL (80-96); MONOCYTES # (AUTO) 0.5 /CMM (0.1-1.30); MONOCYTES % (AUTO) 2.3 % (2.0-12.0); NEUTROPHILS % (AUTO) 86.8 % (43.0-81.0); PLATELET COUNT (AUTO) 293 /CMM (150-450); RED BLOOD CELL COUNT(AUTO) 2.65 MIL/uL (4.5-6.0)
[2016-09-03 08:23] LABS: CALCIUM, SERUM 7.3 mg/dL (8.5-10.1); CREATININE 0.9 mg/dL (0.6-1.3); POTASSIUM 4.3 mmol/L (3.5-5.1)
[2016-09-03] MEDS: TRAMADOL HCL 50 MG TABLET PO SCH ×2 (08:39→21:37)
[2016-09-03] MEDS: MONTELUKAST SODIUM (10MG) 10 MG TABLET PO SCH (08:39)
[2016-09-03] MEDS: CHLORHEXIDINE GLUCONATE 15 ML UDC MM SCH ×2 (08:39→21:37)
[2016-09-03] MEDS: VITAMIN B COMP W-C 1 TAB TABLET PO SCH (08:39)
[2016-09-03] MEDS: DRONEDARONE HYDROCHLORIDE 400 MG TABLET PO SCH ×2 (08:39→16:15)
[2016-09-03] MEDS: LACTOBACILLUS RHAMNOSUS GG 1 EACH CAP.SPRINK PO SCH ×2 (08:39→16:15)
[2016-09-03] MEDS: methylPREDNISolone SOD SUCC 40 MG/ML VIAL IV SCH (08:39)
[2016-09-03] MEDS: Z GUARD REMEDY 2 OZ OINT TP SCH ×2 (08:40→21:38)
[2016-09-03] MEDS: HYDROGEL DRESSING 90 GM TUBE TP SCH (08:40)
[2016-09-03] MEDS: Magnesium 1GM/D5W 100ML PREMIX 100 ML IV SCH ×3 (09:00→11:00)
[2016-09-03] MEDS ORDERED: VANCOMYCIN 0.75 GM in IV D5W 250 ML IV SCH (09:00)
[2016-09-03 09:15] LABS: EOSINOPHILS % (MANUAL) 1 % (0-4); LYMPHOCYTES % (MANUAL) 14 % (16-48)
[2016-09-03 09:16] LABS: ANISOCYTOSIS 1+; HYPOCHROMASIA 1+; PLATELET ESTIMATE ADEQUATE; POLYCHROMASIA 1+
[2016-09-03] MEDS: PANTOPRAZOLE 40 MG VIAL IV SCH (11:34)
[2016-09-03] MEDS ORDERED: BARIUM SULFATE 148 GM SUSP.RECON PO ONE (12:00)
[2016-09-03] MEDS ORDERED: BARIUM SULFATE 240 ML ORAL.SUSP PO ONE (12:00)
[2016-09-03] MEDS: DIGOXIN ELIX UDC 0.25 MG/5 ML UDC GT SCH (12:38)
[2016-09-03] MEDS ORDERED: FUROSEMIDE 20 MG/2 ML VIAL IV ONE (13:30)
[2016-09-03] MEDS: METRONIDAZOLE 500MG/ NS 100ML 500 MG in PREMIX 1 EA IV SCH ×2 (14:10→21:37)
[2016-09-03] MEDS: MUPIROCIN OINT 2% 22 GM TUBE SCH ×2 (15:19→21:38)
[2016-09-03] MEDS: PROSOURCE / PROSTAT (PYXIS) 30 ML UDC GT SCH (16:15)
[2016-09-03] MEDS ORDERED: IV NS 0.9% 250 ML IV ONE (18:46)
[2016-09-03] MEDS ORDERED: BLOOD IV SET 1 EA INFUS.SET MC ONE (18:46)
[2016-09-03] MEDS: ATORVASTATIN 10 MG TABLET PO SCH (21:37)
[2016-09-03] MEDS: DOCUSATE SODIUM 100 MG CAPSULE PO SCH (21:37)
[2016-09-04] VITALS (8 sets, daily range): BP systolic 105–127; BP diastolic 52–79
[2016-09-04] MEDS: MEROPENEM 500 MG in IV NS 0.9% 50 ML IV SCH ×3 (01:22→17:09)
[2016-09-04] MEDS ORDERED: IV SET PRIMARY PUMP SET 1 EA INFUS.SET MC ONE (02:35)
[2016-09-04] MEDS ORDERED: IV NS 0.9% 250 ML IV ONE (02:35)
[2016-09-04] MEDS ORDERED: SECONDARY IV SET 1 EA INFUS.SET MC ONE ×3 (02:35→14:12)
[2016-09-04] MEDS: IPRATROPIUM NEB FS 0.5 MG/2.5 ML AMPUL.NEB NEB SCH ×5 (03:29→20:28)
[2016-09-04] MEDS: ALBUTEROL FS 2.5 MG/0.5 ML VIAL.NEB NEB SCH ×5 (03:29→20:29)
[2016-09-04] MEDS: METRONIDAZOLE 500MG/ NS 100ML 500 MG in PREMIX 1 EA IV SCH ×3 (04:44→21:53)
[2016-09-04] MEDS: GENTAMICIN 120 MG in IV D5W 100 ML IV SCH (05:22)
[2016-09-04 08:03] LABS: CALCIUM, SERUM 7.6 mg/dL (8.5-10.1); CREATININE 0.9 mg/dL (0.6-1.3); POTASSIUM 4.2 mmol/L (3.5-5.1)
[2016-09-04 08:07] LABS: PHOSPHORUS 1.6 mg/dL (2.5-4.9)
[2016-09-04 08:14] LABS: BASOPHILS # (AUTO) 0.1 /CMM (0.0-0.2); BASOPHILS % (AUTO) 0.6 % (0.0-2.0); DIFF TOTAL % 100 %; EOSINOPHILS # (AUTO) 0.8 /CMM (0.0-0.7); EOSINOPHILS % (AUTO) 3.5 % (0.0-6.0); HEMATOCRIT 35 % (39-51); HEMOGLOBIN 10.9 g/dL (13.5-17.5); LYMPHOCYTES # (AUTO) 1.8 /CMM (0.8-4.8); MEAN CORPUSCULAR HEMOGLOBIN 28 PG (26.0-33.0); MEAN CORPUSCULAR HGB CONC 32 g/dl (31.0-36.0); MEAN CORPUSCULAR VOLUME 89 fL (80-96); MONOCYTES # (AUTO) 0.7 /CMM (0.1-1.30); NEUTROPHILS # (AUTO) 19.3 /CMM (1.8-8.9); NEUTROPHILS % (AUTO) 84.9 % (43.0-81.0); PLATELET COUNT (AUTO) 308 /CMM (150-450); RED BLOOD CELL COUNT(AUTO) 3.89 MIL/uL (4.5-6.0); WHITE BLOOD COUNT (AUTO) 22.7 K/uL (4.3-11.0)
[2016-09-04] MEDS: PROSOURCE / PROSTAT (PYXIS) 30 ML UDC GT SCH ×2 (08:23→17:06)
[2016-09-04] MEDS: MONTELUKAST SODIUM (10MG) 10 MG TABLET PO SCH (08:24)
[2016-09-04] MEDS: DRONEDARONE HYDROCHLORIDE 400 MG TABLET PO SCH ×2 (08:24→17:06)
[2016-09-04] MEDS: VITAMIN B COMP W-C 1 TAB TABLET PO SCH (08:24)
[2016-09-04] MEDS: methylPREDNISolone SOD SUCC 40 MG/ML VIAL IV SCH (08:24)
[2016-09-04] MEDS: LACTOBACILLUS RHAMNOSUS GG 1 EACH CAP.SPRINK PO SCH ×2 (08:24→17:06)
[2016-09-04] MEDS: TRAMADOL HCL 50 MG TABLET PO SCH ×2 (08:24→21:54)
[2016-09-04] MEDS: CHLORHEXIDINE GLUCONATE 15 ML UDC MM SCH ×2 (08:28→21:53)
[2016-09-04] MEDS: MUPIROCIN OINT 2% 22 GM TUBE SCH ×2 (08:28→22:00)
[2016-09-04] MEDS: Z GUARD REMEDY 2 OZ OINT TP SCH ×2 (09:37→21:00)
[2016-09-04] MEDS: HYDROGEL DRESSING 90 GM TUBE TP SCH (09:37)
[2016-09-04] MEDS ORDERED: POTASSIUM PHOSPHATE MM 15 MMOL in IV D5W 250 ML IV SCH (11:30)
[2016-09-04] MEDS: MULTIVITAMINS,THERAPEUTIC 1 UDTAB TABLET PO SCH (11:44)
[2016-09-04] MEDS: ZINC SULFATE 220 MG CAPSULE PO SCH (11:44)
[2016-09-04] MEDS: ASCORBIC ACID 500 MG TABLET PO SCH (11:44)
[2016-09-04] MEDS: PANTOPRAZOLE 40 MG VIAL IV SCH (11:45)
[2016-09-04] MEDS: DIGOXIN ELIX UDC 0.25 MG/5 ML UDC GT SCH (12:36)
[2016-09-04] MEDS: POTASSIUM PHOSPHATE MM 7.5 MMOL in IV D5W 100 ML IV SCH ×2 (14:15→16:41)
[2016-09-04] MEDS ORDERED: VANCOMYCIN 1 GM in IV D5W 250 ML IV SCH (20:00)
[2016-09-04] MEDS: ATORVASTATIN 10 MG TABLET PO SCH (21:53)
[2016-09-04] MEDS: DOCUSATE SODIUM 100 MG CAPSULE PO SCH (21:54)
[2016-09-05] VITALS: BP 106/59
[2016-09-05] MEDS: IPRATROPIUM NEB FS 0.5 MG/2.5 ML AMPUL.NEB NEB SCH ×7 (00:04→23:32)
[2016-09-05] MEDS: ALBUTEROL FS 2.5 MG/0.5 ML VIAL.NEB NEB SCH ×7 (00:04→23:32)
[2016-09-05] MEDS: MEROPENEM 500 MG in IV NS 0.9% 50 ML IV SCH ×3 (02:44→17:35)
[2016-09-05 04:00] VITALS: BP 100/60
[2016-09-05] MEDS: METRONIDAZOLE 500MG/ NS 100ML 500 MG in PREMIX 1 EA IV SCH ×3 (05:23→21:15)
[2016-09-05] MEDS: GLYTROL 1,000 ML BAG GT PRN (05:25)
[2016-09-05 06:04] LABS: BASOPHILS % (AUTO) 0.1 % (0.0-2.0); DIFF TOTAL % 100 %; EOSINOPHILS # (AUTO) 0.5 /CMM (0.0-0.7); EOSINOPHILS % (AUTO) 2.2 % (0.0-6.0); HEMATOCRIT 33 % (39-51); HEMOGLOBIN 10.5 g/dL (13.5-17.5); LYMPHOCYTES # (AUTO) 1.2 /CMM (0.8-4.8); MEAN CORPUSCULAR HEMOGLOBIN 29 PG (26.0-33.0); MEAN CORPUSCULAR HGB CONC 32 g/dl (31.0-36.0); MEAN CORPUSCULAR VOLUME 89 fL (80-96); MONOCYTES # (AUTO) 0.5 /CMM (0.1-1.30); MONOCYTES % (AUTO) 1.9 % (2.0-12.0); NEUTROPHILS # (AUTO) 21.6 /CMM (1.8-8.9); NEUTROPHILS % (AUTO) 90.8 % (43.0-81.0); PLATELET COUNT (AUTO) 340 /CMM (150-450); RED BLOOD CELL COUNT(AUTO) 3.69 MIL/uL (4.5-6.0); WHITE BLOOD COUNT (AUTO) 23.8 K/uL (4.3-11.0)
[2016-09-05 06:49] LABS: ALBUMIN 1.8 g/dL (3.4-5.0); BILIRUBIN,TOTAL 0.4 mg/dL (0.2-1.0); CALCIUM, SERUM 7.7 mg/dL (8.5-10.1); CREATININE 0.9 mg/dL (0.6-1.3); PHOSPHORUS 1.7 mg/dL (2.5-4.9); POTASSIUM 3.7 mmol/L (3.5-5.1)
[2016-09-05 08:00] VITALS: BP 121/62
[2016-09-05] MEDS: GENTAMICIN 100 MG in IV D5W 50 ML IV SCH (08:52)
[2016-09-05] MEDS: methylPREDNISolone SOD SUCC 40 MG/ML VIAL IV SCH (09:12)
[2016-09-05] MEDS: DRONEDARONE HYDROCHLORIDE 400 MG TABLET PO SCH ×2 (09:13→16:25)
[2016-09-05] MEDS: ASCORBIC ACID 500 MG TABLET PO SCH (09:13)
[2016-09-05] MEDS: MULTIVITAMINS,THERAPEUTIC 1 UDTAB TABLET PO SCH (09:13)
[2016-09-05] MEDS: MONTELUKAST SODIUM (10MG) 10 MG TABLET PO SCH (09:14)
[2016-09-05] MEDS: ZINC SULFATE 220 MG CAPSULE PO SCH (09:14)
[2016-09-05] MEDS: VITAMIN B COMP W-C 1 TAB TABLET PO SCH (09:14)
[2016-09-05] MEDS: LACTOBACILLUS RHAMNOSUS GG 1 EACH CAP.SPRINK PO SCH ×2 (09:14→16:25)
[2016-09-05] MEDS: TRAMADOL HCL 50 MG TABLET PO SCH ×2 (09:17→21:16)
[2016-09-05] MEDS: PROSOURCE / PROSTAT (PYXIS) 30 ML UDC GT SCH ×2 (09:18→16:24)
[2016-09-05] MEDS: CHLORHEXIDINE GLUCONATE 15 ML UDC MM SCH ×2 (09:18→21:16)
[2016-09-05] MEDS: HYDROGEL DRESSING 90 GM TUBE TP SCH (09:19)
[2016-09-05] MEDS: Z GUARD REMEDY 2 OZ OINT TP SCH ×2 (09:19→21:17)
[2016-09-05] MEDS: MUPIROCIN OINT 2% 22 GM TUBE SCH ×2 (09:19→21:17)
[2016-09-05] MEDS ORDERED: IV NS 0.9% 250 ML IV ONE (10:48)
[2016-09-05] MEDS ORDERED: SECONDARY IV SET 1 EA INFUS.SET MC ONE ×3 (10:48→16:17)
[2016-09-05] MEDS: PANTOPRAZOLE 40 MG VIAL IV SCH (10:54)
[2016-09-05] MEDS ORDERED: ONDANSETRON HCL/PF 4 MG/2 ML VIAL IV PRN (11:00)
[2016-09-05 12:00] VITALS: BP 101/59
[2016-09-05] MEDS: Magnesium 1GM/D5W 100ML PREMIX 100 ML IV SCH ×2 (12:04→14:05)
[2016-09-05] MEDS: METOCLOPRAMIDE HCL 10 MG/2 ML VIAL IV SCH ×3 (12:04→16:25)
[2016-09-05] MEDS: DIGOXIN ELIX UDC 0.25 MG/5 ML UDC GT SCH (14:06)
[2016-09-05 16:00] VITALS: BP 103/52
[2016-09-05] MEDS ORDERED: NEUTRA PHOS 1 POWD.PACKET GT ONE (16:30)
[2016-09-05] MEDS: IV D5/0.45 NACL 1,000 ML IV PRN (19:53)
[2016-09-05 20:00] VITALS: BP 106/62
[2016-09-05] MEDS: DOCUSATE SODIUM 100 MG CAPSULE PO SCH (21:16)
[2016-09-05] MEDS: ATORVASTATIN 10 MG TABLET PO SCH (21:17)
[2016-09-06] VITALS: BP 101/49
[2016-09-06] MEDS: MEROPENEM 500 MG in IV NS 0.9% 50 ML IV SCH ×2 (02:00→11:23)
[2016-09-06] MEDS: ALBUTEROL FS 2.5 MG/0.5 ML VIAL.NEB NEB SCH ×6 (03:24→23:24)
[2016-09-06] MEDS: IPRATROPIUM NEB FS 0.5 MG/2.5 ML AMPUL.NEB NEB SCH ×6 (03:24→23:24)
[2016-09-06 04:00] VITALS: BP 101/54
[2016-09-06] MEDS: METRONIDAZOLE 500MG/ NS 100ML 500 MG in PREMIX 1 EA IV SCH ×3 (05:14→21:49)
[2016-09-06 07:42] LABS: CALCIUM, SERUM 7.5 mg/dL (8.5-10.1); CREATININE 0.9 mg/dL (0.6-1.3); PHOSPHORUS 2.4 mg/dL (2.5-4.9); POTASSIUM 3.8 mmol/L (3.5-5.1)
[2016-09-06 07:58] LABS: BASOPHILS % (AUTO) 0.3 % (0.0-2.0); DIFF TOTAL % 100 %; EOSINOPHILS # (AUTO) 0.5 /CMM (0.0-0.7); EOSINOPHILS % (AUTO) 2.7 % (0.0-6.0); HEMATOCRIT 31 % (39-51); HEMOGLOBIN 10.2 g/dL (13.5-17.5); LYMPHOCYTES # (AUTO) 1.5 /CMM (0.8-4.8); LYMPHOCYTES % (AUTO) 8.4 % (20.0-44.0); MEAN CORPUSCULAR HEMOGLOBIN 29 PG (26.0-33.0); MEAN CORPUSCULAR HGB CONC 33 g/dl (31.0-36.0); MEAN CORPUSCULAR VOLUME 88 fL (80-96); MONOCYTES # (AUTO) 0.7 /CMM (0.1-1.30); MONOCYTES % (AUTO) 4.1 % (2.0-12.0); NEUTROPHILS # (AUTO) 15.4 /CMM (1.8-8.9); NEUTROPHILS % (AUTO) 84.5 % (43.0-81.0); PLATELET COUNT (AUTO) 339 /CMM (150-450); RED BLOOD CELL COUNT(AUTO) 3.54 MIL/uL (4.5-6.0); WHITE BLOOD COUNT (AUTO) 18.2 K/uL (4.3-11.0)
[2016-09-06 08:00] VITALS: BP 104/59
[2016-09-06] MEDS: TRAMADOL HCL 50 MG TABLET PO SCH ×2 (09:00→21:50)
[2016-09-06] MEDS: GENTAMICIN 100 MG in IV D5W 50 ML IV SCH (09:33)
[2016-09-06] MEDS: methylPREDNISolone SOD SUCC 40 MG/ML VIAL IV SCH (09:33)
[2016-09-06] MEDS: CHLORHEXIDINE GLUCONATE 15 ML UDC MM SCH ×2 (09:34→21:49)
[2016-09-06] MEDS: METOCLOPRAMIDE HCL 10 MG/2 ML VIAL IV SCH ×3 (09:34→17:20)
[2016-09-06] MEDS: HYDROGEL DRESSING 90 GM TUBE TP SCH (09:49)
[2016-09-06] MEDS: MUPIROCIN OINT 2% 22 GM TUBE SCH ×2 (09:50→21:51)
[2016-09-06] MEDS: Z GUARD REMEDY 2 OZ OINT TP SCH ×2 (09:52→21:50)
[2016-09-06 12:00] VITALS: BP 97/63
[2016-09-06] MEDS ORDERED: BISACODYL SUPP (10 MG) 10 MG/SUPP.RECT SUPP.RECT RC PRN (12:00)
[2016-09-06] MEDS: DIGOXIN ELIX UDC 0.25 MG/5 ML UDC GT SCH (12:20)
[2016-09-06] MEDS: PANTOPRAZOLE 40 MG VIAL IV SCH (12:20)
[2016-09-06] MEDS: DRONEDARONE HYDROCHLORIDE 400 MG TABLET PO SCH ×2 (12:22→17:21)
[2016-09-06] MEDS: LACTOBACILLUS RHAMNOSUS GG 1 EACH CAP.SPRINK PO SCH ×2 (12:22→17:21)
[2016-09-06] MEDS: MULTIVITAMINS,THERAPEUTIC 1 UDTAB TABLET PO SCH (12:22)
[2016-09-06] MEDS: ZINC SULFATE 220 MG CAPSULE PO SCH (12:22)
[2016-09-06] MEDS: ASCORBIC ACID 500 MG TABLET PO SCH (12:22)
[2016-09-06] MEDS: VITAMIN B COMP W-C 1 TAB TABLET PO SCH (12:22)
[2016-09-06] MEDS: MONTELUKAST SODIUM (10MG) 10 MG TABLET PO SCH (12:22)
[2016-09-06] MEDS: PROSOURCE / PROSTAT (PYXIS) 30 ML UDC GT SCH ×2 (12:23→17:00)
[2016-09-06] MEDS: BISACODYL SUPP (10 MG) 10 MG/SUPP.RECT SUPP.RECT RC PRN (12:24)
[2016-09-06] MEDS: POLYETHYLENE GLYCOL 3350 17 GM POWD.PACK PO PRN (12:25)
[2016-09-06] MEDS ORDERED: SECONDARY IV SET 1 EA INFUS.SET MC ONE (12:42)
[2016-09-06 16:00] VITALS: BP 95/53
[2016-09-06] MEDS ORDERED: NEUTRA PHOS 1 POWD.PACKET GT ONE (16:30)
[2016-09-06] MEDS ORDERED: MINERAL OIL 133 ML (PYXIS) 1 EA ENEMA RC ONE (19:00)
[2016-09-06 20:00] VITALS: BP 106/67
[2016-09-06] MEDS: DOCUSATE SODIUM 100 MG CAPSULE PO SCH (21:49)
[2016-09-06] MEDS: ATORVASTATIN 10 MG TABLET PO SCH (21:49)
[2016-09-07] VITALS (7 sets, daily range): BP systolic 92–147; BP diastolic 47–98
[2016-09-07] MEDS: IPRATROPIUM NEB FS 0.5 MG/2.5 ML AMPUL.NEB NEB SCH ×6 (02:51→23:51)
[2016-09-07] MEDS: ALBUTEROL FS 2.5 MG/0.5 ML VIAL.NEB NEB SCH ×6 (02:52→23:51)
[2016-09-07] MEDS: IV D5/0.45 NACL 1,000 ML IV PRN ×2 (03:05→21:41)
[2016-09-07] MEDS: BISACODYL SUPP (10 MG) 10 MG/SUPP.RECT SUPP.RECT RC PRN (03:41)
[2016-09-07] MEDS: METRONIDAZOLE 500MG/ NS 100ML 500 MG in PREMIX 1 EA IV SCH ×3 (05:10→21:41)
[2016-09-07 06:40] LABS: BASOPHILS % (AUTO) 0.2 % (0.0-2.0); DIFF TOTAL % 100 %; EOSINOPHILS # (AUTO) 0.5 /CMM (0.0-0.7); EOSINOPHILS % (AUTO) 3.3 % (0.0-6.0); HEMATOCRIT 33 % (39-51); HEMOGLOBIN 10.5 g/dL (13.5-17.5); LYMPHOCYTES # (AUTO) 1.2 /CMM (0.8-4.8); MEAN CORPUSCULAR HEMOGLOBIN 29 PG (26.0-33.0); MEAN CORPUSCULAR HGB CONC 32 g/dl (31.0-36.0); MEAN CORPUSCULAR VOLUME 89 fL (80-96); MONOCYTES # (AUTO) 0.8 /CMM (0.1-1.30); MONOCYTES % (AUTO) 5.5 % (2.0-12.0); NEUTROPHILS # (AUTO) 12.6 /CMM (1.8-8.9); PLATELET COUNT (AUTO) 374 /CMM (150-450); RED BLOOD CELL COUNT(AUTO) 3.69 MIL/uL (4.5-6.0); WHITE BLOOD COUNT (AUTO) 15.2 K/uL (4.3-11.0)
[2016-09-07 06:58] LABS: INR 1.14 (0.87-1.13); PROTHROMBIN TIME 12.3 SECS (9.5-12.7)
[2016-09-07 07:03] LABS: CALCIUM, SERUM 7.5 mg/dL (8.5-10.1); CREATININE 0.9 mg/dL (0.6-1.3); POTASSIUM 3.8 mmol/L (3.5-5.1)
[2016-09-07] MEDS ORDERED: SECONDARY IV SET 1 EA INFUS.SET MC ONE (08:01)
[2016-09-07] MEDS: GENTAMICIN 90 MG in IV D5W 100 ML IV SCH (08:04)
[2016-09-07] MEDS: methylPREDNISolone SOD SUCC 40 MG/ML VIAL IV SCH (08:04)
[2016-09-07] MEDS: METOCLOPRAMIDE HCL 10 MG/2 ML VIAL IV SCH ×3 (08:04→16:01)
[2016-09-07] MEDS: CHLORHEXIDINE GLUCONATE 15 ML UDC MM SCH ×2 (08:10→21:42)
[2016-09-07] MEDS: PROSOURCE / PROSTAT (PYXIS) 30 ML UDC GT SCH ×2 (08:10→16:02)
[2016-09-07] MEDS: HYDROGEL DRESSING 90 GM TUBE TP SCH (08:11)
[2016-09-07] MEDS: TRAMADOL HCL 50 MG TABLET PO SCH ×2 (08:11→21:42)
[2016-09-07] MEDS: MUPIROCIN OINT 2% 22 GM TUBE SCH ×2 (08:11→21:43)
[2016-09-07] MEDS: ZINC SULFATE 220 MG CAPSULE PO SCH (08:11)
[2016-09-07] MEDS: ASCORBIC ACID 500 MG TABLET PO SCH (08:11)
[2016-09-07] MEDS: VITAMIN B COMP W-C 1 TAB TABLET PO SCH (08:12)
[2016-09-07] MEDS: LACTOBACILLUS RHAMNOSUS GG 1 EACH CAP.SPRINK PO SCH ×2 (08:12→16:01)
[2016-09-07] MEDS: MONTELUKAST SODIUM (10MG) 10 MG TABLET PO SCH (08:12)
[2016-09-07] MEDS: MULTIVITAMINS,THERAPEUTIC 1 UDTAB TABLET PO SCH (08:12)
[2016-09-07] MEDS: DRONEDARONE HYDROCHLORIDE 400 MG TABLET PO SCH ×2 (08:12→16:03)
[2016-09-07] MEDS: Z GUARD REMEDY 2 OZ OINT TP SCH ×2 (08:13→21:43)
[2016-09-07] MEDS: GLYTROL 1,000 ML BAG GT PRN (11:40)
[2016-09-07] MEDS: PANTOPRAZOLE 40 MG VIAL IV SCH (11:46)
[2016-09-07] MEDS: TRAMADOL HCL 50 MG TABLET PO PRN (11:46)
[2016-09-07] MEDS: POLYETHYLENE GLYCOL 3350 17 GM POWD.PACK PO PRN (12:55)
[2016-09-07] MEDS: DIGOXIN ELIX UDC 0.25 MG/5 ML UDC GT SCH (12:56)
[2016-09-07] MEDS: NA PHOS,M-B/NA PHOS,DI-BA 1 EA ENEMA RC PRN (16:16)
[2016-09-07] MEDS: DOCUSATE SODIUM LIQ 100 MG/10 ML UDC GT SCH (21:42)
[2016-09-07] MEDS: ATORVASTATIN 10 MG TABLET PO SCH (21:42)
[2016-09-08] VITALS (7 sets, daily range): BP systolic 95–108; BP diastolic 50–66
[2016-09-08] MEDS: IPRATROPIUM NEB FS 0.5 MG/2.5 ML AMPUL.NEB NEB SCH ×6 (03:30→22:43)
[2016-09-08] MEDS: ALBUTEROL FS 2.5 MG/0.5 ML VIAL.NEB NEB SCH ×6 (03:56→22:43)
[2016-09-08] MEDS: BISACODYL SUPP (10 MG) 10 MG/SUPP.RECT SUPP.RECT RC PRN (05:12)
[2016-09-08] MEDS: METRONIDAZOLE 500MG/ NS 100ML 500 MG in PREMIX 1 EA IV SCH ×3 (05:12→21:00)
[2016-09-08 06:40] LABS: CALCIUM, SERUM 7.6 mg/dL (8.5-10.1); CREATININE 0.8 mg/dL (0.6-1.3); POTASSIUM 3.6 mmol/L (3.5-5.1)
[2016-09-08] MEDS: DRONEDARONE HYDROCHLORIDE 400 MG TABLET PO SCH ×2 (09:00→17:00)
[2016-09-08] MEDS: TRAMADOL HCL 50 MG TABLET PO SCH ×2 (09:00→21:01)
[2016-09-08] MEDS: LACTOBACILLUS RHAMNOSUS GG 1 EACH CAP.SPRINK PO SCH ×2 (09:00→18:31)
[2016-09-08] MEDS: PROSOURCE / PROSTAT (PYXIS) 30 ML UDC GT SCH ×2 (09:00→17:00)
[2016-09-08] MEDS: MONTELUKAST SODIUM (10MG) 10 MG TABLET PO SCH (09:00)
[2016-09-08] MEDS: MULTIVITAMINS,THERAPEUTIC 1 UDTAB TABLET PO SCH (09:00)
[2016-09-08] MEDS: VITAMIN B COMP W-C 1 TAB TABLET PO SCH (09:00)
[2016-09-08] MEDS: ZINC SULFATE 220 MG CAPSULE PO SCH (09:00)
[2016-09-08] MEDS: ASCORBIC ACID 500 MG TABLET PO SCH (09:00)
[2016-09-08] MEDS: GENTAMICIN 90 MG in IV D5W 100 ML IV SCH (11:00)
[2016-09-08] MEDS: CHLORHEXIDINE GLUCONATE 15 ML UDC MM SCH ×2 (11:01→21:00)
[2016-09-08] MEDS: METOCLOPRAMIDE HCL 10 MG/2 ML VIAL IV SCH ×3 (11:01→18:29)
[2016-09-08] MEDS: methylPREDNISolone SOD SUCC 40 MG/ML VIAL IV SCH (11:01)
[2016-09-08] MEDS: HYDROGEL DRESSING 90 GM TUBE TP SCH (11:02)
[2016-09-08] MEDS: Z GUARD REMEDY 2 OZ OINT TP SCH ×2 (11:04→21:02)
[2016-09-08] MEDS: MUPIROCIN OINT 2% 22 GM TUBE SCH ×2 (11:06→21:02)
[2016-09-08] MEDS ORDERED: SECONDARY IV SET 1 EA INFUS.SET MC ONE (11:27)
[2016-09-08] MEDS ORDERED: PEG 3350/NA SULF,BICARB,CL/KCL 4,000 ML BOTTLE PO ONE (12:30)
[2016-09-08] MEDS: PANTOPRAZOLE 40 MG VIAL IV SCH (14:33)
[2016-09-08] MEDS: DIGOXIN ELIX UDC 0.25 MG/5 ML UDC GT SCH (14:35)
[2016-09-08] MEDS ORDERED: IV D5/ 0.9% NACL 1,000 ML IV ONE (16:13)
[2016-09-08] MEDS ORDERED: IV SET PRIMARY PUMP SET 1 EA INFUS.SET MC ONE (16:19)
[2016-09-08] MEDS ORDERED: FUROSEMIDE 20 MG/2 ML VIAL IV ONE (17:00)
[2016-09-08 18:50] LABS: DIFF TOTAL % 100 %; EOSINOPHILS % (AUTO) 0.3 % (0.0-6.0); HEMATOCRIT 40 % (39-51); HEMOGLOBIN 12.3 g/dL (13.5-17.5); LYMPHOCYTES # (AUTO) 0.5 /CMM (0.8-4.8); LYMPHOCYTES % (AUTO) 3.7 % (20.0-44.0); MEAN CORPUSCULAR HEMOGLOBIN 28 PG (26.0-33.0); MEAN CORPUSCULAR HGB CONC 30 g/dl (31.0-36.0); MEAN CORPUSCULAR VOLUME 91 fL (80-96); MONOCYTES # (AUTO) 0.4 /CMM (0.1-1.30); MONOCYTES % (AUTO) 2.6 % (2.0-12.0); NEUTROPHILS # (AUTO) 13.1 /CMM (1.8-8.9); NEUTROPHILS % (AUTO) 93.4 % (43.0-81.0); PLATELET COUNT (AUTO) 247 /CMM (150-450); RED BLOOD CELL COUNT(AUTO) 4.46 MIL/uL (4.5-6.0)
[2016-09-08] MEDS: NA PHOS,M-B/NA PHOS,DI-BA 1 EA ENEMA RC PRN (19:14)
[2016-09-08] MEDS: DOCUSATE SODIUM LIQ 100 MG/10 ML UDC GT SCH (21:00)
[2016-09-08] MEDS: ATORVASTATIN 10 MG TABLET PO SCH (21:00)
[2016-09-09] VITALS (8 sets, daily range): BP systolic 84–128; BP diastolic 51–78
[2016-09-09] MEDS: ALBUTEROL FS 2.5 MG/0.5 ML VIAL.NEB NEB SCH ×6 (03:28→23:11)
[2016-09-09] MEDS: IPRATROPIUM NEB FS 0.5 MG/2.5 ML AMPUL.NEB NEB SCH ×6 (03:28→23:12)
[2016-09-09] MEDS: IV D5/0.45 NACL 1,000 ML IV PRN (04:29)
[2016-09-09] MEDS: METRONIDAZOLE 500MG/ NS 100ML 500 MG in PREMIX 1 EA IV SCH ×3 (04:29→20:13)
[2016-09-09 08:07] LABS: BASOPHILS % (AUTO) 0.1 % (0.0-2.0); DIFF TOTAL % 100 %; HEMATOCRIT 38 % (39-51); HEMOGLOBIN 11.7 g/dL (13.5-17.5); LYMPHOCYTES # (AUTO) 0.7 /CMM (0.8-4.8); LYMPHOCYTES % (AUTO) 3.3 % (20.0-44.0); MEAN CORPUSCULAR HEMOGLOBIN 28 PG (26.0-33.0); MEAN CORPUSCULAR HGB CONC 31 g/dl (31.0-36.0); MEAN CORPUSCULAR VOLUME 89 fL (80-96); MONOCYTES # (AUTO) 0.6 /CMM (0.1-1.30); MONOCYTES % (AUTO) 2.7 % (2.0-12.0); NEUTROPHILS % (AUTO) 93.9 % (43.0-81.0); PLATELET COUNT (AUTO) 407 /CMM (150-450); WHITE BLOOD COUNT (AUTO) 20.3 K/uL (4.3-11.0)
[2016-09-09 08:38] LABS: CALCIUM, SERUM 7.6 mg/dL (8.5-10.1)
[2016-09-09 08:45] LABS: POTASSIUM 2.8 mmol/L (3.5-5.1)
[2016-09-09] MEDS: VITAMIN B COMP W-C 1 TAB TABLET PO SCH (09:00)
[2016-09-09] MEDS: ASCORBIC ACID 500 MG TABLET PO SCH (09:00)
[2016-09-09] MEDS: TRAMADOL HCL 50 MG TABLET PO SCH ×2 (09:00→20:09)
[2016-09-09] MEDS: DRONEDARONE HYDROCHLORIDE 400 MG TABLET PO SCH ×2 (09:00→17:00)
[2016-09-09] MEDS: ZINC SULFATE 220 MG CAPSULE PO SCH (09:00)
[2016-09-09] MEDS: LACTOBACILLUS RHAMNOSUS GG 1 EACH CAP.SPRINK PO SCH ×2 (09:00→17:00)
[2016-09-09] MEDS: CHLORHEXIDINE GLUCONATE 15 ML UDC MM SCH ×2 (09:00→20:13)
[2016-09-09] MEDS: PROSOURCE / PROSTAT (PYXIS) 30 ML UDC GT SCH ×2 (09:00→17:00)
[2016-09-09] MEDS: MULTIVITAMINS,THERAPEUTIC 1 UDTAB TABLET PO SCH (09:00)
[2016-09-09] MEDS: MONTELUKAST SODIUM (10MG) 10 MG TABLET PO SCH (09:00)
[2016-09-09] MEDS: METOCLOPRAMIDE HCL 10 MG/2 ML VIAL IV SCH ×3 (09:36→17:40)
[2016-09-09] MEDS: methylPREDNISolone SOD SUCC 40 MG/ML VIAL IV SCH (09:36)
[2016-09-09] MEDS: POTASSIUM CL. PREMIX PERIPHER. 50 ML IV SCH ×4 (09:37→14:47)
[2016-09-09] MEDS ORDERED: SECONDARY IV SET 1 EA INFUS.SET MC ONE ×2 (09:38→09:53)
[2016-09-09] MEDS: GENTAMICIN 90 MG in IV D5W 100 ML IV SCH (09:38)
[2016-09-09] MEDS ORDERED: IV SET PRIMARY PUMP SET 1 EA INFUS.SET MC ONE (09:54)
[2016-09-09] MEDS: MUPIROCIN OINT 2% 22 GM TUBE SCH ×2 (10:00→20:16)
[2016-09-09] MEDS: HYDROGEL DRESSING 90 GM TUBE TP SCH (10:00)
[2016-09-09] MEDS: Z GUARD REMEDY 2 OZ OINT TP SCH ×2 (10:00→20:15)
[2016-09-09] MEDS ORDERED: TPN/PPN PER PHARMACY XX PRN (10:30)
[2016-09-09] MEDS: IV D5/ 0.9% NACL 1,000 ML IV SCH (10:30)
[2016-09-09] MEDS: PANTOPRAZOLE 40 MG VIAL IV SCH (11:46)
[2016-09-09] MEDS ORDERED: DIGOXIN INJ 0.5 MG/2 ML AMPUL IV ONE (13:00)
[2016-09-09] MEDS: DOCUSATE SODIUM LIQ 100 MG/10 ML UDC GT SCH (21:19)
[2016-09-09] MEDS: ATORVASTATIN 10 MG TABLET PO SCH (21:19)
[2016-09-10] VITALS: BP 113/61
[2016-09-10] MEDS: ALBUTEROL FS 2.5 MG/0.5 ML VIAL.NEB NEB SCH ×6 (03:02→23:49)
[2016-09-10] MEDS: IPRATROPIUM NEB FS 0.5 MG/2.5 ML AMPUL.NEB NEB SCH ×6 (03:02→23:49)
[2016-09-10] MEDS: IV D5/ 0.9% NACL 1,000 ML IV SCH (03:19)
[2016-09-10 04:00] VITALS: BP 102/70
[2016-09-10] MEDS: METRONIDAZOLE 500MG/ NS 100ML 500 MG in PREMIX 1 EA IV SCH ×3 (05:03→21:25)
[2016-09-10 06:17] LABS: BASOPHILS % (AUTO) 0.2 % (0.0-2.0); DIFF TOTAL % 100 %; EOSINOPHILS # (AUTO) 0.1 /CMM (0.0-0.7); EOSINOPHILS % (AUTO) 0.8 % (0.0-6.0); HEMATOCRIT 35 % (39-51); HEMOGLOBIN 11.1 g/dL (13.5-17.5); LYMPHOCYTES # (AUTO) 1.1 /CMM (0.8-4.8); LYMPHOCYTES % (AUTO) 6.4 % (20.0-44.0); MEAN CORPUSCULAR HEMOGLOBIN 28 PG (26.0-33.0); MEAN CORPUSCULAR HGB CONC 32 g/dl (31.0-36.0); MEAN CORPUSCULAR VOLUME 90 fL (80-96); MONOCYTES # (AUTO) 0.3 /CMM (0.1-1.30); MONOCYTES % (AUTO) 1.9 % (2.0-12.0); NEUTROPHILS # (AUTO) 16.2 /CMM (1.8-8.9); NEUTROPHILS % (AUTO) 90.7 % (43.0-81.0); PLATELET COUNT (AUTO) 332 /CMM (150-450); RED BLOOD CELL COUNT(AUTO) 3.92 MIL/uL (4.5-6.0); WHITE BLOOD COUNT (AUTO) 17.8 K/uL (4.3-11.0)
[2016-09-10 06:26] LABS: CALCIUM, SERUM 7.6 mg/dL (8.5-10.1); CREATININE 0.9 mg/dL (0.6-1.3); POTASSIUM 3.6 mmol/L (3.5-5.1)
[2016-09-10 06:31] LABS: ALBUMIN 1.5 g/dL (3.4-5.0); BILIRUBIN,TOTAL 0.5 mg/dL (0.2-1.0); TOTAL PROTEIN, SERUM 6.1 g/dL (6.4-8.2)
[2016-09-10 06:34] LABS: LACTIC ACID 0.9 mmol/L (0.4-2.0)
[2016-09-10 06:45] LABS: DIGOXIN 1.14 ng/mL (0.90-2.00)
[2016-09-10 08:00] VITALS: BP 96/63
[2016-09-10] MEDS: GENTAMICIN 90 MG in IV D5W 100 ML IV SCH (08:00)
[2016-09-10] MEDS ORDERED: TPN BAG 2 IV PRN ×7 (08:00)
[2016-09-10] MEDS: MAGNESIUM HYDROXIDE 30 ML UDC PO PRN (08:56)
[2016-09-10] MEDS: LACTOBACILLUS RHAMNOSUS GG 1 EACH CAP.SPRINK PO SCH ×3 (08:56→16:41)
[2016-09-10] MEDS: ASCORBIC ACID 500 MG TABLET PO SCH ×2 (08:57→09:00)
[2016-09-10] MEDS: MONTELUKAST SODIUM (10MG) 10 MG TABLET PO SCH ×2 (08:57→09:00)
[2016-09-10] MEDS: POLYETHYLENE GLYCOL 3350 17 GM POWD.PACK PO PRN (08:57)
[2016-09-10] MEDS: PROSOURCE / PROSTAT (PYXIS) 30 ML UDC GT SCH ×3 (08:57→16:41)
[2016-09-10] MEDS: MULTIVITAMINS,THERAPEUTIC 1 UDTAB TABLET PO SCH ×2 (08:57→09:00)
[2016-09-10] MEDS: CHLORHEXIDINE GLUCONATE 15 ML UDC MM SCH ×2 (08:57→21:26)
[2016-09-10] MEDS: TRAMADOL HCL 50 MG TABLET PO SCH ×3 (08:57→21:00)
[2016-09-10] MEDS: VITAMIN B COMP W-C 1 TAB TABLET PO SCH ×2 (08:57→09:00)
[2016-09-10] MEDS: ZINC SULFATE 220 MG CAPSULE PO SCH ×2 (08:57→09:00)
[2016-09-10] MEDS: DRONEDARONE HYDROCHLORIDE 400 MG TABLET PO SCH ×3 (08:58→16:41)
[2016-09-10] MEDS: METOCLOPRAMIDE HCL 10 MG/2 ML VIAL IV SCH ×3 (08:58→16:51)
[2016-09-10] MEDS: Z GUARD REMEDY 2 OZ OINT TP SCH ×2 (08:59→21:28)
[2016-09-10] MEDS: MUPIROCIN OINT 2% 22 GM TUBE SCH ×2 (08:59→21:27)
[2016-09-10] MEDS: HYDROGEL DRESSING 90 GM TUBE TP SCH (08:59)
[2016-09-10] MEDS ORDERED: methylPREDNISolone SOD SUCC 40 MG/ML VIAL IV SCH (09:00)
[2016-09-10] MEDS: PANTOPRAZOLE 40 MG VIAL IV SCH (11:51)
[2016-09-10 12:00] VITALS: BP 123/67
[2016-09-10] MEDS: DIGOXIN INJ 0.5 MG/2 ML AMPUL IV SCH (12:24)
[2016-09-10] MEDS: HYDROMORPHONE 1 MG/1 ML DISP.SYRIN IV PRN (12:25)
[2016-09-10] MEDS ORDERED: FEE TPN 1 MIN EA MC ONE (14:04)
[2016-09-10 14:22] LABS: PHOSPHORUS 2.5 mg/dL (2.5-4.9)
[2016-09-10] MEDS ORDERED: SECONDARY IV SET 1 EA INFUS.SET MC ONE ×2 (14:53→22:28)
[2016-09-10] MEDS: MEROPENEM 500 MG in IV NS 0.9% 50 ML IV SCH (14:57)
[2016-09-10 16:00] VITALS: BP 111/62
[2016-09-10] MEDS ORDERED: TPN BAG #2 IV PRN ×7 (16:00)
[2016-09-10] MEDS ORDERED: TPN BAG #1 IV PRN ×9 (16:00)
[2016-09-10] MEDS ORDERED: IV SET PRIMARY PUMP SET 1 EA INFUS.SET MC ONE ×2 (17:09→20:13)
[2016-09-10] MEDS ORDERED: FILTER SET SAVER IV SET 1 EA INFUS.SET MC ONE (17:50)
[2016-09-10 20:00] VITALS: BP 105/62
[2016-09-10] MEDS ORDERED: IV NS 0.9% 250 ML IV ONE (20:13)
[2016-09-10] MEDS: Magnesium 1GM/D5W 100ML PREMIX 100 ML IV SCH ×2 (21:25→22:29)
[2016-09-10] MEDS: ATORVASTATIN 10 MG TABLET PO SCH (21:27)
[2016-09-10] MEDS: DOCUSATE SODIUM LIQ 100 MG/10 ML UDC GT SCH (21:27)
[2016-09-11] VITALS: BP 104/54
[2016-09-11] MEDS: IV D5/ 0.9% NACL 1,000 ML IV SCH (00:22)
[2016-09-11] MEDS: MEROPENEM 500 MG in IV NS 0.9% 50 ML IV SCH ×2 (02:34→14:11)
[2016-09-11] MEDS: ALBUTEROL FS 2.5 MG/0.5 ML VIAL.NEB NEB SCH ×6 (03:41→20:19)
[2016-09-11] MEDS: IPRATROPIUM NEB FS 0.5 MG/2.5 ML AMPUL.NEB NEB SCH ×5 (03:41→20:19)
[2016-09-11 04:00] VITALS: BP 101/61
[2016-09-11] MEDS: METRONIDAZOLE 500MG/ NS 100ML 500 MG in PREMIX 1 EA IV SCH ×3 (05:36→20:27)
[2016-09-11 06:54] LABS: BASOPHILS # (AUTO) 0.1 /CMM (0.0-0.2); BASOPHILS % (AUTO) 0.6 % (0.0-2.0); DIFF TOTAL % 100 %; EOSINOPHILS # (AUTO) 0.2 /CMM (0.0-0.7); EOSINOPHILS % (AUTO) 1.7 % (0.0-6.0); HEMATOCRIT 35 % (39-51); HEMOGLOBIN 10.8 g/dL (13.5-17.5); LYMPHOCYTES # (AUTO) 0.8 /CMM (0.8-4.8); LYMPHOCYTES % (AUTO) 5.9 % (20.0-44.0); MEAN CORPUSCULAR HEMOGLOBIN 28 PG (26.0-33.0); MEAN CORPUSCULAR HGB CONC 31 g/dl (31.0-36.0); MEAN CORPUSCULAR VOLUME 90 fL (80-96); MONOCYTES # (AUTO) 0.3 /CMM (0.1-1.30); MONOCYTES % (AUTO) 2.1 % (2.0-12.0); NEUTROPHILS # (AUTO) 12.2 /CMM (1.8-8.9); NEUTROPHILS % (AUTO) 89.7 % (43.0-81.0); PLATELET COUNT (AUTO) 342 /CMM (150-450); RED BLOOD CELL COUNT(AUTO) 3.83 MIL/uL (4.5-6.0); WHITE BLOOD COUNT (AUTO) 13.6 K/uL (4.3-11.0)
[2016-09-11 07:19] LABS: ALBUMIN 1.5 g/dL (3.4-5.0); BILIRUBIN,TOTAL 0.3 mg/dL (0.2-1.0); CALCIUM, SERUM 7.5 mg/dL (8.5-10.1); CREATININE 0.9 mg/dL (0.6-1.3); PHOSPHORUS 1.5 mg/dL (2.5-4.9); POTASSIUM 3.2 mmol/L (3.5-5.1); TOTAL PROTEIN, SERUM 5.7 g/dL (6.4-8.2)
[2016-09-11 08:00] VITALS: BP 121/65
[2016-09-11] MEDS: PROSOURCE / PROSTAT (PYXIS) 30 ML UDC GT SCH ×2 (08:14→16:48)
[2016-09-11] MEDS: MONTELUKAST SODIUM (10MG) 10 MG TABLET PO SCH (08:15)
[2016-09-11] MEDS: TRAMADOL HCL 50 MG TABLET PO SCH ×2 (08:15→20:27)
[2016-09-11] MEDS: LACTOBACILLUS RHAMNOSUS GG 1 EACH CAP.SPRINK PO SCH ×2 (08:15→16:49)
[2016-09-11] MEDS: MULTIVITAMINS,THERAPEUTIC 1 UDTAB TABLET PO SCH (08:15)
[2016-09-11] MEDS: VITAMIN B COMP W-C 1 TAB TABLET PO SCH (08:15)
[2016-09-11] MEDS: DRONEDARONE HYDROCHLORIDE 400 MG TABLET PO SCH ×2 (08:15→16:49)
[2016-09-11] MEDS: ASCORBIC ACID 500 MG TABLET PO SCH (08:15)
[2016-09-11] MEDS: ZINC SULFATE 220 MG CAPSULE PO SCH (08:16)
[2016-09-11] MEDS: METOCLOPRAMIDE HCL 10 MG/2 ML VIAL IV SCH ×3 (08:43→17:29)
[2016-09-11] MEDS: CHLORHEXIDINE GLUCONATE 15 ML UDC MM SCH ×2 (08:43→20:25)
[2016-09-11] MEDS: HYDROGEL DRESSING 90 GM TUBE TP SCH (08:43)
[2016-09-11] MEDS: methylPREDNISolone SOD SUCC 40 MG/ML VIAL IV SCH (08:43)
[2016-09-11] MEDS: Z GUARD REMEDY 2 OZ OINT TP SCH ×2 (08:44→20:25)
[2016-09-11] MEDS: MUPIROCIN OINT 2% 22 GM TUBE SCH ×2 (08:44→20:26)
[2016-09-11] MEDS ORDERED: TPN BAG #3 IV PRN ×15 (09:00→09:14)
[2016-09-11] MEDS ORDERED: TPN BAG #2 IV PRN ×6 (09:00)
[2016-09-11] MEDS: GENTAMICIN 80 MG in IV D5W 50 ML IV SCH (09:22)
[2016-09-11] MEDS ORDERED: FILTER SET SAVER IV SET 1 EA INFUS.SET MC ONE (11:27)
[2016-09-11] MEDS ORDERED: POTASSIUM CHLORIDE 20 MEQ TAB.PRT.SR PO SCH (11:30)
[2016-09-11] MEDS: HYDROMORPHONE 1 MG/1 ML DISP.SYRIN IV PRN (11:35)
[2016-09-11] MEDS ORDERED: IV SET PRIMARY PUMP SET 1 EA INFUS.SET MC ONE (11:39)
[2016-09-11] MEDS: PANTOPRAZOLE 40 MG VIAL IV SCH (11:47)
[2016-09-11 12:00] VITALS: BP_SYST 100; BP_SYST 106; BP_DIAS 57; BP_DIAS 62
[2016-09-11] MEDS: POTASSIUM CL. PREMIX PERIPHER. 50 ML IV SCH ×4 (12:54→18:08)
[2016-09-11] MEDS ORDERED: DIATR MEGLU/DIATRIZOATE SODIUM 120 ML BOTTLE (GASTROGRAPHIN) ONE ×2 (12:59→13:34)
[2016-09-11] MEDS ORDERED: DIATR MEGLU/DIATRIZOATE SODIUM 30 ML BOTTLE (GASTROGRAPHIN) ONE (13:27)
[2016-09-11] MEDS ORDERED: DIATRIZOATE MEGLUMINE 300 ML BOTTLE UR ONE (13:27)
[2016-09-11] MEDS: DIGOXIN INJ 0.5 MG/2 ML AMPUL IV SCH (14:10)
[2016-09-11] MEDS ORDERED: NEUTRA PHOS 1 POWD.PACKET NG ONE (15:30)
[2016-09-11 16:00] VITALS: BP 104/68
[2016-09-11 20:00] VITALS: BP 98/49
[2016-09-11] MEDS ORDERED: SECONDARY IV SET 1 EA INFUS.SET MC ONE (20:19)
[2016-09-11] MEDS: Potassium Phosphate meq 11 MEQ in IV D5W 100 ML IV SCH ×2 (20:25→23:47)
[2016-09-11] MEDS: DOCUSATE SODIUM LIQ 100 MG/10 ML UDC GT SCH (21:38)
[2016-09-11] MEDS: ATORVASTATIN 10 MG TABLET PO SCH (21:38)
[2016-09-12] VITALS: BP 117/68
[2016-09-12] MEDS: ALBUTEROL FS 2.5 MG/0.5 ML VIAL.NEB NEB SCH ×8 (00:35→23:45)
[2016-09-12] MEDS: IPRATROPIUM NEB FS 0.5 MG/2.5 ML AMPUL.NEB NEB SCH ×7 (00:35→23:45)
[2016-09-12] MEDS: MEROPENEM 500 MG in IV NS 0.9% 50 ML IV SCH ×2 (01:31→14:23)
[2016-09-12] MEDS ORDERED: ONDANSETRON HCL/PF 4 MG/2 ML VIAL ONE (03:25)
[2016-09-12] MEDS ORDERED: ONDANSETRON HCL/PF 4 MG/2 ML VIAL IV PRN (03:30)
[2016-09-12 04:00] VITALS: BP_SYST 103; BP_SYST 133; BP_DIAS 60
[2016-09-12] MEDS ORDERED: IV NS 0.9% 250 ML IV ONE (05:23)
[2016-09-12] MEDS: METRONIDAZOLE 500MG/ NS 100ML 500 MG in PREMIX 1 EA IV SCH ×3 (05:30→21:00)
[2016-09-12] MEDS ORDERED: FILTER SET SAVER IV SET 1 EA INFUS.SET MC ONE ×3 (05:34→23:39)
[2016-09-12 07:10] LABS: BASOPHILS % (AUTO) 0.1 % (0.0-2.0); DIFF TOTAL % 100 %; EOSINOPHILS # (AUTO) 0.3 /CMM (0.0-0.7); HEMATOCRIT 35 % (39-51); LYMPHOCYTES # (AUTO) 0.7 /CMM (0.8-4.8); LYMPHOCYTES % (AUTO) 4.7 % (20.0-44.0); MEAN CORPUSCULAR HEMOGLOBIN 28 PG (26.0-33.0); MEAN CORPUSCULAR HGB CONC 32 g/dl (31.0-36.0); MEAN CORPUSCULAR VOLUME 89 fL (80-96); MONOCYTES # (AUTO) 0.5 /CMM (0.1-1.30); MONOCYTES % (AUTO) 3.3 % (2.0-12.0); NEUTROPHILS # (AUTO) 12.8 /CMM (1.8-8.9); NEUTROPHILS % (AUTO) 89.9 % (43.0-81.0); PLATELET COUNT (AUTO) 314 /CMM (150-450); WHITE BLOOD COUNT (AUTO) 14.2 K/uL (4.3-11.0)
[2016-09-12 07:33] LABS: CALCIUM, SERUM 7.4 mg/dL (8.5-10.1); CREATININE 0.9 mg/dL (0.6-1.3); PHOSPHORUS 1.9 mg/dL (2.5-4.9); POTASSIUM 3.9 mmol/L (3.5-5.1)
[2016-09-12 08:00] VITALS: BP 101/59
[2016-09-12] MEDS: LACTOBACILLUS RHAMNOSUS GG 1 EACH CAP.SPRINK PO SCH ×2 (08:08→16:46)
[2016-09-12] MEDS: VITAMIN B COMP W-C 1 TAB TABLET PO SCH (08:09)
[2016-09-12] MEDS: MONTELUKAST SODIUM (10MG) 10 MG TABLET PO SCH (08:09)
[2016-09-12] MEDS: PROSOURCE / PROSTAT (PYXIS) 30 ML UDC GT SCH ×2 (08:09→16:46)
[2016-09-12] MEDS: DRONEDARONE HYDROCHLORIDE 400 MG TABLET PO SCH ×2 (08:09→16:46)
[2016-09-12] MEDS: TRAMADOL HCL 50 MG TABLET PO SCH ×2 (08:09→20:44)
[2016-09-12] MEDS: MULTIVITAMINS,THERAPEUTIC 1 UDTAB TABLET PO SCH (08:09)
[2016-09-12] MEDS: ZINC SULFATE 220 MG CAPSULE PO SCH (08:10)
[2016-09-12] MEDS: ASCORBIC ACID 500 MG TABLET PO SCH (08:10)
[2016-09-12] MEDS: HYDROGEL DRESSING 90 GM TUBE TP SCH (08:34)
[2016-09-12] MEDS: GENTAMICIN 80 MG in IV D5W 50 ML IV SCH (08:34)
[2016-09-12] MEDS: Z GUARD REMEDY 2 OZ OINT TP SCH ×2 (08:34→21:00)
[2016-09-12] MEDS: CHLORHEXIDINE GLUCONATE 15 ML UDC MM SCH ×2 (08:34→21:00)
[2016-09-12] MEDS: METOCLOPRAMIDE HCL 10 MG/2 ML VIAL IV SCH ×3 (08:34→17:20)
[2016-09-12] MEDS: methylPREDNISolone SOD SUCC 40 MG/ML VIAL IV SCH (08:34)
[2016-09-12] MEDS: MUPIROCIN OINT 2% 22 GM TUBE SCH ×2 (08:35→21:01)
[2016-09-12 12:00] VITALS: BP 99/58
[2016-09-12] MEDS: PANTOPRAZOLE 40 MG VIAL IV SCH (12:47)
[2016-09-12] MEDS: DIGOXIN INJ 0.5 MG/2 ML AMPUL IV SCH (12:48)
[2016-09-12] MEDS ORDERED: TPN BAG #5 IV PRN ×8 (13:00)
[2016-09-12] MEDS ORDERED: TPN BAG #4 IV PRN ×6 (13:00)
[2016-09-12 16:00] VITALS: BP 108/66
[2016-09-12 20:00] VITALS: BP 131/69
[2016-09-12] MEDS ORDERED: FUROSEMIDE 20 MG/2 ML VIAL IV ONE (20:30)
[2016-09-12] MEDS: DOCUSATE SODIUM LIQ 100 MG/10 ML UDC GT SCH (20:44)
[2016-09-12] MEDS: ATORVASTATIN 10 MG TABLET PO SCH (20:44)
[2016-09-12] MEDS ORDERED: IV SET PRIMARY PUMP SET 1 EA INFUS.SET MC ONE (23:39)
[2016-09-13] VITALS (7 sets, daily range): BP systolic 92–117; BP diastolic 42–65
[2016-09-13] MEDS: MEROPENEM 500 MG in IV NS 0.9% 50 ML IV SCH ×3 (01:07→20:36)
[2016-09-13] MEDS ORDERED: IV SET PRIMARY PUMP SET 1 EA INFUS.SET MC ONE ×5 (01:13→20:35)
[2016-09-13] MEDS: ALBUTEROL FS 2.5 MG/0.5 ML VIAL.NEB NEB SCH ×5 (03:22→20:18)
[2016-09-13] MEDS: IPRATROPIUM NEB FS 0.5 MG/2.5 ML AMPUL.NEB NEB SCH ×5 (03:22→20:17)
[2016-09-13] MEDS: METRONIDAZOLE 500MG/ NS 100ML 500 MG in PREMIX 1 EA IV SCH ×3 (05:00→20:36)
[2016-09-13 07:15] LABS: CALCIUM, SERUM 7.7 mg/dL (8.5-10.1); CREATININE 1.1 mg/dL (0.6-1.3); PHOSPHORUS 1.7 mg/dL (2.5-4.9); POTASSIUM 3.5 mmol/L (3.5-5.1)
[2016-09-13 07:17] LABS: DIFF TOTAL % 100 %; EOSINOPHILS # (AUTO) 0.1 /CMM (0.0-0.7); EOSINOPHILS % (AUTO) 0.3 % (0.0-6.0); HEMATOCRIT 31 % (39-51); HEMOGLOBIN 9.7 g/dL (13.5-17.5); LYMPHOCYTES # (AUTO) 0.8 /CMM (0.8-4.8); LYMPHOCYTES % (AUTO) 3.4 % (20.0-44.0); MEAN CORPUSCULAR HEMOGLOBIN 28 PG (26.0-33.0); MEAN CORPUSCULAR HGB CONC 32 g/dl (31.0-36.0); MEAN CORPUSCULAR VOLUME 89 fL (80-96); MONOCYTES # (AUTO) 0.7 /CMM (0.1-1.30); MONOCYTES % (AUTO) 2.9 % (2.0-12.0); NEUTROPHILS # (AUTO) 20.8 /CMM (1.8-8.9); NEUTROPHILS % (AUTO) 93.4 % (43.0-81.0); PLATELET COUNT (AUTO) 235 /CMM (150-450); RED BLOOD CELL COUNT(AUTO) 3.43 MIL/uL (4.5-6.0); WHITE BLOOD COUNT (AUTO) 22.3 K/uL (4.3-11.0)
[2016-09-13 07:56] LABS: PREALBUMIN 10.4 MG/DL (18.0-35.7)
[2016-09-13] MEDS: PROSOURCE / PROSTAT (PYXIS) 30 ML UDC GT SCH ×2 (09:17→17:00)
[2016-09-13] MEDS: MONTELUKAST SODIUM (10MG) 10 MG TABLET PO SCH (09:17)
[2016-09-13] MEDS: CHLORHEXIDINE GLUCONATE 15 ML UDC MM SCH ×2 (09:17→20:38)
[2016-09-13] MEDS: GENTAMICIN 80 MG in IV D5W 50 ML IV SCH (09:17)
[2016-09-13] MEDS: methylPREDNISolone SOD SUCC 40 MG/ML VIAL IV SCH (09:17)
[2016-09-13] MEDS: ZINC SULFATE 220 MG CAPSULE PO SCH (09:17)
[2016-09-13] MEDS: VITAMIN B COMP W-C 1 TAB TABLET PO SCH (09:17)
[2016-09-13] MEDS: ASCORBIC ACID 500 MG TABLET PO SCH (09:18)
[2016-09-13] MEDS: DRONEDARONE HYDROCHLORIDE 400 MG TABLET PO SCH ×2 (09:18→17:00)
[2016-09-13] MEDS: TRAMADOL HCL 50 MG TABLET PO SCH ×2 (09:18→20:35)
[2016-09-13] MEDS: LACTOBACILLUS RHAMNOSUS GG 1 EACH CAP.SPRINK PO SCH ×2 (09:18→17:00)
[2016-09-13] MEDS: MULTIVITAMINS,THERAPEUTIC 1 UDTAB TABLET PO SCH (09:18)
[2016-09-13] MEDS ORDERED: TPN BAG #5 IV PRN ×9 (09:21)
[2016-09-13] MEDS: METOCLOPRAMIDE HCL 10 MG/2 ML VIAL IV SCH ×3 (09:26→17:00)
[2016-09-13] MEDS: MUPIROCIN OINT 2% 22 GM TUBE SCH (09:26)
[2016-09-13] MEDS: HYDROGEL DRESSING 90 GM TUBE TP SCH (09:26)
[2016-09-13] MEDS: Z GUARD REMEDY 2 OZ OINT TP SCH ×2 (09:27→20:35)
[2016-09-13] MEDS ORDERED: TPN BAG #6 IV PRN ×6 (09:30)
[2016-09-13] MEDS: PANTOPRAZOLE 40 MG VIAL IV SCH (11:55)
[2016-09-13] MEDS: DIGOXIN INJ 0.5 MG/2 ML AMPUL IV SCH (13:25)
[2016-09-13] MEDS ORDERED: POTASSIUM PHOSPHATE MM 15 MMOL in IV D5W 250 ML IV SCH (20:00)
[2016-09-13] MEDS ORDERED: SECONDARY IV SET 1 EA INFUS.SET MC ONE ×3 (20:31→21:33)
[2016-09-13] MEDS ORDERED: IV NS 0.9% 250 ML IV ONE (20:35)
[2016-09-13] MEDS: DOCUSATE SODIUM LIQ 100 MG/10 ML UDC GT SCH (21:33)
[2016-09-13] MEDS: ATORVASTATIN 10 MG TABLET PO SCH (21:33)
[2016-09-14] VITALS (7 sets, daily range): BP systolic 86–115; BP diastolic 41–54
[2016-09-14] MEDS: ALBUTEROL FS 2.5 MG/0.5 ML VIAL.NEB NEB SCH ×8 (00:12→23:04)
[2016-09-14] MEDS: IPRATROPIUM NEB FS 0.5 MG/2.5 ML AMPUL.NEB NEB SCH ×8 (00:12→23:10)
[2016-09-14] MEDS ORDERED: IV SET PRIMARY PUMP SET 1 EA INFUS.SET MC ONE ×2 (03:10→16:41)
[2016-09-14] MEDS: METRONIDAZOLE 500MG/ NS 100ML 500 MG in PREMIX 1 EA IV SCH ×3 (05:12→21:02)
[2016-09-14] MEDS: MEROPENEM 500 MG in IV NS 0.9% 50 ML IV SCH ×3 (05:12→21:02)
[2016-09-14 06:06] LABS: CALCIUM, SERUM 7.7 mg/dL (8.5-10.1); CREATININE 1.1 mg/dL (0.6-1.3); PHOSPHORUS 2.5 mg/dL (2.5-4.9); POTASSIUM 3.2 mmol/L (3.5-5.1)
[2016-09-14] MEDS: MONTELUKAST SODIUM (10MG) 10 MG TABLET PO SCH (09:00)
[2016-09-14] MEDS: PROSOURCE / PROSTAT (PYXIS) 30 ML UDC GT SCH ×2 (09:00→17:00)
[2016-09-14] MEDS: VITAMIN B COMP W-C 1 TAB TABLET PO SCH (09:00)
[2016-09-14] MEDS: LACTOBACILLUS RHAMNOSUS GG 1 EACH CAP.SPRINK PO SCH ×2 (09:00→17:00)
[2016-09-14] MEDS: Z GUARD REMEDY 2 OZ OINT TP SCH ×2 (09:00→21:03)
[2016-09-14] MEDS: DRONEDARONE HYDROCHLORIDE 400 MG TABLET PO SCH ×2 (09:00→17:00)
[2016-09-14] MEDS: HYDROGEL DRESSING 90 GM TUBE TP SCH (09:00)
[2016-09-14] MEDS: CHLORHEXIDINE GLUCONATE 15 ML UDC MM SCH ×2 (09:00→21:03)
[2016-09-14] MEDS: MULTIVITAMINS,THERAPEUTIC 1 UDTAB TABLET PO SCH (09:00)
[2016-09-14] MEDS: ZINC SULFATE 220 MG CAPSULE PO SCH (09:00)
[2016-09-14] MEDS: TRAMADOL HCL 50 MG TABLET PO SCH ×2 (09:00→21:03)
[2016-09-14] MEDS: ASCORBIC ACID 500 MG TABLET PO SCH (09:00)
[2016-09-14] MEDS: METOCLOPRAMIDE HCL 10 MG/2 ML VIAL IV SCH ×3 (10:14→17:56)
[2016-09-14] MEDS: methylPREDNISolone SOD SUCC 40 MG/ML VIAL IV SCH (10:16)
[2016-09-14] MEDS: PANTOPRAZOLE 40 MG VIAL IV SCH (10:21)
[2016-09-14] MEDS: DIGOXIN INJ 0.5 MG/2 ML AMPUL IV SCH (13:12)
[2016-09-14] MEDS ORDERED: GLYTROL 1,000 ML BAG GT PRN (16:16)
[2016-09-14] MEDS ORDERED: FILTER SET SAVER IV SET 1 EA INFUS.SET MC ONE (16:40)
[2016-09-14] MEDS ORDERED: DEXTROSE 50%-WATER 50 ML DISP.SYRIN IV PRN (17:00)
[2016-09-14] MEDS: BLOOD SUGAR DIAGNOSTIC 1 EACH STRIP IN SCH ×2 (17:59→23:58)
[2016-09-14] MEDS: DOCUSATE SODIUM LIQ 100 MG/10 ML UDC GT SCH (21:03)
[2016-09-14] MEDS: ATORVASTATIN 10 MG TABLET PO SCH (21:03)
[2016-09-15] VITALS: BP_SYST 83; BP_SYST 85; BP_SYST 99; BP_DIAS 49; BP_DIAS 53; BP_DIAS 55
[2016-09-15] MEDS ORDERED: IV NS 0.9% 1,000 ML ONE (00:08)
[2016-09-15] MEDS: INSULIN REGULAR, HUMAN 100 UNIT/ML 3 ML VIAL SQ PRN ×4 (00:18→17:45)
[2016-09-15] MEDS ORDERED: IV NS 0.9% 1,000 ML IV PRN (00:30)
[2016-09-15] MEDS: ALBUTEROL FS 2.5 MG/0.5 ML VIAL.NEB NEB SCH ×6 (03:19→23:58)
[2016-09-15] MEDS: IPRATROPIUM NEB FS 0.5 MG/2.5 ML AMPUL.NEB NEB SCH ×6 (03:19→23:58)
[2016-09-15] MEDS ORDERED: IV NS 0.9% 250 ML IV ONE (03:53)
[2016-09-15 04:00] VITALS: BP 104/45
[2016-09-15] MEDS: MEROPENEM 500 MG in IV NS 0.9% 50 ML IV SCH ×3 (04:07→20:08)
[2016-09-15] MEDS: METRONIDAZOLE 500MG/ NS 100ML 500 MG in PREMIX 1 EA IV SCH ×3 (04:07→20:08)
[2016-09-15] MEDS: BLOOD SUGAR DIAGNOSTIC 1 EACH STRIP IN SCH ×3 (05:44→17:43)
[2016-09-15 07:59] LABS: CALCIUM, SERUM 7.2 mg/dL (8.5-10.1); CREATININE 1.3 mg/dL (0.6-1.3); PHOSPHORUS 1.8 mg/dL (2.5-4.9)
[2016-09-15 08:00] VITALS: BP 98/50
[2016-09-15] MEDS ORDERED: TPN BAG #7 IV PRN ×20 (08:00→08:59)
[2016-09-15 08:33] LABS: POTASSIUM 2.6 mmol/L (3.5-5.1)
[2016-09-15] MEDS: CHLORHEXIDINE GLUCONATE 15 ML UDC MM SCH ×2 (09:19→20:08)
[2016-09-15] MEDS: MULTIVITAMINS,THERAPEUTIC 1 UDTAB TABLET PO SCH (09:19)
[2016-09-15] MEDS: DRONEDARONE HYDROCHLORIDE 400 MG TABLET PO SCH ×2 (09:19→17:42)
[2016-09-15] MEDS: PROSOURCE / PROSTAT (PYXIS) 30 ML UDC GT SCH (09:19)
[2016-09-15] MEDS: METOCLOPRAMIDE HCL 10 MG/2 ML VIAL IV SCH ×3 (09:20→17:43)
[2016-09-15] MEDS: LACTOBACILLUS RHAMNOSUS GG 1 EACH CAP.SPRINK PO SCH ×2 (09:20→17:43)
[2016-09-15] MEDS: ASCORBIC ACID 500 MG TABLET PO SCH (09:20)
[2016-09-15] MEDS: VITAMIN B COMP W-C 1 TAB TABLET PO SCH (09:20)
[2016-09-15] MEDS ORDERED: IV SET PRIMARY PUMP SET 1 EA INFUS.SET MC ONE (09:20)
[2016-09-15] MEDS ORDERED: FILTER SET SAVER IV SET 1 EA INFUS.SET MC ONE (09:20)
[2016-09-15] MEDS: TRAMADOL HCL 50 MG TABLET PO SCH ×2 (09:20→20:08)
[2016-09-15] MEDS: methylPREDNISolone SOD SUCC 40 MG/ML VIAL IV SCH (09:20)
[2016-09-15] MEDS: HYDROGEL DRESSING 90 GM TUBE TP SCH (09:20)
[2016-09-15] MEDS: ZINC SULFATE 220 MG CAPSULE PO SCH (09:20)
[2016-09-15] MEDS: MONTELUKAST SODIUM (10MG) 10 MG TABLET PO SCH (09:20)
[2016-09-15] MEDS: Z GUARD REMEDY 2 OZ OINT TP SCH ×2 (09:21→20:09)
[2016-09-15] MEDS ORDERED: FAT EMULSION 20% 500 ML in PREMIX 1 EA IV PRN (10:00)
[2016-09-15] MEDS: PANTOPRAZOLE 40 MG VIAL IV SCH (11:38)
[2016-09-15 12:00] VITALS: BP 104/57
[2016-09-15] MEDS: DIGOXIN INJ 0.5 MG/2 ML AMPUL IV SCH (12:44)
[2016-09-15] MEDS ORDERED: TPN BAG #8 IV PRN ×7 (13:30)
[2016-09-15] MEDS ORDERED: TPN BAG #9 IV PRN ×8 (14:00)
[2016-09-15] MEDS ORDERED: FAT EMULSION 20% 500 ML in PREMIX 1 EA IV SCH (14:00)
[2016-09-15] MEDS ORDERED: CASPOFUNGIN 50 MG in IV NS 0.9% 250 ML IV SCH (16:00)
[2016-09-15 16:10] VITALS: BP 96/51
[2016-09-15] MEDS ORDERED: SECONDARY IV SET 1 EA INFUS.SET MC ONE (17:36)
[2016-09-15] MEDS: MICAFUNGIN SODIUM 100 MG in IV NS 0.9% 100 ML IV SCH (17:43)
[2016-09-15 20:00] VITALS: BP_SYST 112; BP_SYST 122; BP_DIAS 50; BP_DIAS 52
[2016-09-15] MEDS: DOCUSATE SODIUM LIQ 100 MG/10 ML UDC GT SCH (21:00)
[2016-09-15] MEDS: ATORVASTATIN 10 MG TABLET PO SCH (21:00)
[2016-09-16] VITALS (7 sets, daily range): BP systolic 88–113; BP diastolic 46–65
[2016-09-16] MEDS: BLOOD SUGAR DIAGNOSTIC 1 EACH STRIP IN SCH ×4 (00:30→18:02)
[2016-09-16] MEDS: INSULIN REGULAR, HUMAN 100 UNIT/ML 3 ML VIAL SQ PRN ×4 (00:31→18:06)
[2016-09-16] MEDS: GLYTROL 1,000 ML BAG GT PRN ×2 (02:32→22:54)
[2016-09-16] MEDS: IPRATROPIUM NEB FS 0.5 MG/2.5 ML AMPUL.NEB NEB SCH ×6 (03:53→23:32)
[2016-09-16] MEDS: ALBUTEROL FS 2.5 MG/0.5 ML VIAL.NEB NEB SCH ×6 (03:53→23:32)
[2016-09-16] MEDS: METRONIDAZOLE 500MG/ NS 100ML 500 MG in PREMIX 1 EA IV SCH ×3 (05:41→20:38)
[2016-09-16] MEDS: MEROPENEM 500 MG in IV NS 0.9% 50 ML IV SCH ×3 (05:41→20:38)
[2016-09-16 09:20] LABS: CALCIUM, SERUM 7.7 mg/dL (8.5-10.1); CREATININE 1.5 mg/dL (0.6-1.3); PHOSPHORUS 1.4 mg/dL (2.5-4.9); POTASSIUM 2.9 mmol/L (3.5-5.1)
[2016-09-16] MEDS: CHLORHEXIDINE GLUCONATE 15 ML UDC MM SCH ×2 (09:32→20:39)
[2016-09-16] MEDS: DRONEDARONE HYDROCHLORIDE 400 MG TABLET PO SCH ×2 (09:32→17:55)
[2016-09-16] MEDS: methylPREDNISolone SOD SUCC 40 MG/ML VIAL IV SCH (09:33)
[2016-09-16] MEDS: MONTELUKAST SODIUM (10MG) 10 MG TABLET PO SCH (09:33)
[2016-09-16] MEDS: LACTOBACILLUS RHAMNOSUS GG 1 EACH CAP.SPRINK PO SCH ×2 (09:33→17:50)
[2016-09-16] MEDS: HYDROGEL DRESSING 90 GM TUBE TP SCH (09:33)
[2016-09-16] MEDS: VITAMIN B COMP W-C 1 TAB TABLET PO SCH (09:33)
[2016-09-16] MEDS: TRAMADOL HCL 50 MG TABLET PO SCH ×2 (09:33→20:39)
[2016-09-16] MEDS: METOCLOPRAMIDE HCL 10 MG/2 ML VIAL IV SCH ×3 (09:33→17:50)
[2016-09-16] MEDS: ZINC SULFATE 220 MG CAPSULE PO SCH (09:33)
[2016-09-16] MEDS: MULTIVITAMINS,THERAPEUTIC 1 UDTAB TABLET PO SCH (09:34)
[2016-09-16] MEDS: Z GUARD REMEDY 2 OZ OINT TP SCH ×2 (09:34→20:40)
[2016-09-16] MEDS: ASCORBIC ACID 500 MG TABLET PO SCH (09:39)
[2016-09-16] MEDS: PANTOPRAZOLE 40 MG VIAL IV SCH (11:59)
[2016-09-16] MEDS: DIGOXIN INJ 0.5 MG/2 ML AMPUL IV SCH (12:01)
[2016-09-16] MEDS ORDERED: NEUTRA PHOS 1 POWD.PACKET NG ONE (16:30)
[2016-09-16] MEDS: MICAFUNGIN SODIUM 100 MG in IV NS 0.9% 100 ML IV SCH (17:49)
[2016-09-16] MEDS: POLYETHYLENE GLYCOL 3350 17 GM POWD.PACK PO SCH (20:38)
[2016-09-16] MEDS: INSULIN DETEMIR 100 UNIT/ML CARTRIDGE SQ SCH (20:49)
[2016-09-16] MEDS ORDERED: PERMETHRIN 5% CRM 60 GM TUBE TP ONE (21:00)
[2016-09-16] MEDS: DOCUSATE SODIUM LIQ 100 MG/10 ML UDC GT SCH (21:13)
[2016-09-16] MEDS: ATORVASTATIN 10 MG TABLET PO SCH (21:14)
[2016-09-17] VITALS (9 sets, daily range): BP systolic 101–118; BP diastolic 50–68
[2016-09-17] MEDS: INSULIN REGULAR, HUMAN 100 UNIT/ML 3 ML VIAL SQ PRN ×4 (01:09→17:42)
[2016-09-17] MEDS: IPRATROPIUM NEB FS 0.5 MG/2.5 ML AMPUL.NEB NEB SCH ×6 (03:31→23:31)
[2016-09-17] MEDS: ALBUTEROL FS 2.5 MG/0.5 ML VIAL.NEB NEB SCH ×6 (03:31→23:31)
[2016-09-17] MEDS: METRONIDAZOLE 500MG/ NS 100ML 500 MG in PREMIX 1 EA IV SCH ×3 (06:13→20:44)
[2016-09-17] MEDS: MEROPENEM 500 MG in IV NS 0.9% 50 ML IV SCH ×3 (06:13→21:28)
[2016-09-17] MEDS: BLOOD SUGAR DIAGNOSTIC 1 EACH STRIP IN SCH ×4 (06:44→17:39)
[2016-09-17 07:12] LABS: CALCIUM, SERUM 7.5 mg/dL (8.5-10.1); CREATININE 1.7 mg/dL (0.6-1.3); POTASSIUM 3.5 mmol/L (3.5-5.1)
[2016-09-17 08:04] LABS: PHOSPHORUS 0.9 mg/dL (2.5-4.9)
[2016-09-17] MEDS: DRONEDARONE HYDROCHLORIDE 400 MG TABLET PO SCH ×2 (09:05→17:39)
[2016-09-17] MEDS: VITAMIN B COMP W-C 1 TAB TABLET PO SCH (09:05)
[2016-09-17] MEDS: CHLORHEXIDINE GLUCONATE 15 ML UDC MM SCH ×2 (09:05→20:44)
[2016-09-17] MEDS: methylPREDNISolone SOD SUCC 40 MG/ML VIAL IV SCH (09:05)
[2016-09-17] MEDS: MONTELUKAST SODIUM (10MG) 10 MG TABLET PO SCH (09:05)
[2016-09-17] MEDS: TRAMADOL HCL 50 MG TABLET PO SCH ×2 (09:05→20:45)
[2016-09-17] MEDS: ZINC SULFATE 220 MG CAPSULE PO SCH (09:05)
[2016-09-17] MEDS: ASCORBIC ACID 500 MG TABLET PO SCH (09:05)
[2016-09-17] MEDS: SENNOSIDES/DOCUSATE SODIUM 1 TAB TABLET PO SCH (09:06)
[2016-09-17] MEDS: HYDROGEL DRESSING 90 GM TUBE TP SCH (09:06)
[2016-09-17] MEDS: MULTIVITAMINS,THERAPEUTIC 1 UDTAB TABLET PO SCH (09:06)
[2016-09-17] MEDS: LACTOBACILLUS RHAMNOSUS GG 1 EACH CAP.SPRINK PO SCH ×2 (09:06→17:38)
[2016-09-17] MEDS: METOCLOPRAMIDE HCL 10 MG/2 ML VIAL IV SCH ×3 (09:06→17:39)
[2016-09-17] MEDS: Z GUARD REMEDY 2 OZ OINT TP SCH ×2 (09:07→20:45)
[2016-09-17] MEDS: INSULIN DETEMIR 100 UNIT/ML CARTRIDGE SQ SCH ×2 (09:09→20:58)
[2016-09-17] MEDS: PANTOPRAZOLE 40 MG VIAL IV SCH (12:13)
[2016-09-17] MEDS: DIGOXIN INJ 0.5 MG/2 ML AMPUL IV SCH (12:13)
[2016-09-17] MEDS ORDERED: K PHOS NEUTRAL 250 MG TABLET GT SCH (17:00)
[2016-09-17] MEDS: GLYTROL 1,000 ML BAG GT PRN (17:38)
[2016-09-17] MEDS: MICAFUNGIN SODIUM 100 MG in IV NS 0.9% 100 ML IV SCH (17:38)
[2016-09-17] MEDS ORDERED: SECONDARY IV SET 1 EA INFUS.SET MC ONE (21:21)
[2016-09-17] MEDS: ATORVASTATIN 10 MG TABLET PO SCH (21:28)
[2016-09-17] MEDS: DOCUSATE SODIUM LIQ 100 MG/10 ML UDC GT SCH (21:28)
[2016-09-17] MEDS: K PHOS NEUTRAL 250 MG TABLET GT SCH (21:28)
[2016-09-17] MEDS: POLYETHYLENE GLYCOL 3350 17 GM POWD.PACK PO SCH (21:29)
[2016-09-18] VITALS: BP 106/60
[2016-09-18] MEDS: BLOOD SUGAR DIAGNOSTIC 1 EACH STRIP IN SCH ×4 (00:13→17:24)
[2016-09-18] MEDS: INSULIN REGULAR, HUMAN 100 UNIT/ML 3 ML VIAL SQ PRN ×4 (00:17→17:31)
[2016-09-18] MEDS: ALBUTEROL FS 2.5 MG/0.5 ML VIAL.NEB NEB SCH ×6 (03:18→23:08)
[2016-09-18] MEDS: IPRATROPIUM NEB FS 0.5 MG/2.5 ML AMPUL.NEB NEB SCH ×6 (03:19→23:07)
[2016-09-18 04:00] VITALS: BP_SYST 108; BP_SYST 117; BP_DIAS 58; BP_DIAS 67
[2016-09-18] MEDS: METRONIDAZOLE 500MG/ NS 100ML 500 MG in PREMIX 1 EA IV SCH ×3 (04:02→21:51)
[2016-09-18] MEDS: MEROPENEM 500 MG in IV NS 0.9% 50 ML IV SCH ×3 (05:44→21:35)
[2016-09-18 07:56] LABS: CALCIUM, SERUM 7.6 mg/dL (8.5-10.1); CREATININE 1.7 mg/dL (0.6-1.3); PHOSPHORUS 1.2 mg/dL (2.5-4.9); POTASSIUM 4.1 mmol/L (3.5-5.1)
[2016-09-18 08:00] VITALS: BP_SYST 103; BP_SYST 107; BP_DIAS 44; BP_DIAS 62
[2016-09-18] MEDS: MULTIVITAMINS,THERAPEUTIC 1 UDTAB TABLET PO SCH (08:18)
[2016-09-18] MEDS: LACTOBACILLUS RHAMNOSUS GG 1 EACH CAP.SPRINK PO SCH ×2 (08:18→16:02)
[2016-09-18] MEDS: CHLORHEXIDINE GLUCONATE 15 ML UDC MM SCH ×2 (08:19→21:51)
[2016-09-18] MEDS: SENNOSIDES/DOCUSATE SODIUM 1 TAB TABLET PO SCH (08:20)
[2016-09-18] MEDS: MONTELUKAST SODIUM (10MG) 10 MG TABLET PO SCH (08:20)
[2016-09-18] MEDS: VITAMIN B COMP W-C 1 TAB TABLET PO SCH (08:20)
[2016-09-18] MEDS: TRAMADOL HCL 50 MG TABLET PO SCH ×2 (08:21→21:51)
[2016-09-18] MEDS: ASCORBIC ACID 500 MG TABLET PO SCH (08:21)
[2016-09-18] MEDS: Z GUARD REMEDY 2 OZ OINT TP SCH ×2 (08:21→22:01)
[2016-09-18] MEDS: METOCLOPRAMIDE HCL 10 MG/2 ML VIAL IV SCH ×3 (08:23→16:02)
[2016-09-18] MEDS: methylPREDNISolone SOD SUCC 40 MG/ML VIAL IV SCH (08:24)
[2016-09-18] MEDS: DRONEDARONE HYDROCHLORIDE 400 MG TABLET PO SCH ×2 (08:26→16:02)
[2016-09-18] MEDS: MAGNESIUM HYDROXIDE 30 ML UDC PO PRN (08:26)
[2016-09-18] MEDS: POLYETHYLENE GLYCOL 3350 17 GM POWD.PACK PO PRN (08:26)
[2016-09-18] MEDS: K PHOS NEUTRAL 250 MG TABLET GT SCH ×4 (08:37→21:50)
[2016-09-18] MEDS: HYDROGEL DRESSING 90 GM TUBE TP SCH (09:00)
[2016-09-18] MEDS: INSULIN DETEMIR 100 UNIT/ML CARTRIDGE SQ SCH ×2 (09:19→21:53)
[2016-09-18 12:00] VITALS: BP 108/61
[2016-09-18] MEDS: PANTOPRAZOLE 40 MG VIAL IV SCH (12:07)
[2016-09-18] MEDS ORDERED: MISCELLANEOUS MED 1 EA EA XX ONE (14:00)
[2016-09-18] MEDS ORDERED: IV SET PRIMARY PUMP SET 1 EA INFUS.SET MC ONE (15:55)
[2016-09-18 16:00] VITALS: BP 118/63
[2016-09-18] MEDS: IV PREMIX D5W + KCL 1,000 ML IV PRN (16:01)
[2016-09-18] MEDS: MICAFUNGIN SODIUM 100 MG in IV NS 0.9% 100 ML IV SCH (16:01)
[2016-09-18 20:00] VITALS: BP 122/62
[2016-09-18] MEDS: DOCUSATE SODIUM LIQ 100 MG/10 ML UDC GT SCH (21:51)
[2016-09-18] MEDS: ATORVASTATIN 10 MG TABLET PO SCH (21:51)
[2016-09-18] MEDS: POLYETHYLENE GLYCOL 3350 17 GM POWD.PACK PO SCH (21:52)
[2016-09-19] VITALS: BP 101/52
[2016-09-19] MEDS: INSULIN REGULAR, HUMAN 100 UNIT/ML 3 ML VIAL SQ PRN ×4 (00:03→23:14)
[2016-09-19] MEDS: IPRATROPIUM NEB FS 0.5 MG/2.5 ML AMPUL.NEB NEB SCH ×6 (03:01→23:19)
[2016-09-19] MEDS: ALBUTEROL FS 2.5 MG/0.5 ML VIAL.NEB NEB SCH ×6 (03:01→23:19)
[2016-09-19 04:00] VITALS: BP 95/56
[2016-09-19] MEDS: MEROPENEM 500 MG in IV NS 0.9% 50 ML IV SCH ×3 (05:31→20:25)
[2016-09-19] MEDS: METRONIDAZOLE 500MG/ NS 100ML 500 MG in PREMIX 1 EA IV SCH ×3 (05:32→21:17)
[2016-09-19] MEDS: GLYTROL 1,000 ML BAG GT PRN (05:32)
[2016-09-19] MEDS: BLOOD SUGAR DIAGNOSTIC 1 EACH STRIP IN SCH ×5 (05:32→23:12)
[2016-09-19] MEDS: IV PREMIX D5W + KCL 1,000 ML IV PRN (05:39)
[2016-09-19 08:00] VITALS: BP 99/53
[2016-09-19] MEDS: K PHOS NEUTRAL 250 MG TABLET GT SCH ×2 (09:54→12:57)
[2016-09-19] MEDS: MONTELUKAST SODIUM (10MG) 10 MG TABLET PO SCH (09:54)
[2016-09-19] MEDS: MULTIVITAMINS,THERAPEUTIC 1 UDTAB TABLET PO SCH (09:54)
[2016-09-19] MEDS: DRONEDARONE HYDROCHLORIDE 400 MG TABLET PO SCH ×2 (09:54→16:57)
[2016-09-19] MEDS: METOCLOPRAMIDE HCL 10 MG/2 ML VIAL IV SCH ×3 (09:54→16:56)
[2016-09-19] MEDS: CHLORHEXIDINE GLUCONATE 15 ML UDC MM SCH ×2 (09:54→20:25)
[2016-09-19] MEDS: methylPREDNISolone SOD SUCC 40 MG/ML VIAL IV SCH (09:54)
[2016-09-19] MEDS: SENNOSIDES/DOCUSATE SODIUM 1 TAB TABLET PO SCH (09:55)
[2016-09-19] MEDS: ASCORBIC ACID 500 MG TABLET PO SCH (09:55)
[2016-09-19] MEDS: LACTOBACILLUS RHAMNOSUS GG 1 EACH CAP.SPRINK PO SCH ×2 (09:56→16:56)
[2016-09-19] MEDS: VITAMIN B COMP W-C 1 TAB TABLET PO SCH (09:56)
[2016-09-19] MEDS: HYDROGEL DRESSING 90 GM TUBE TP SCH (09:56)
[2016-09-19] MEDS: TRAMADOL HCL 50 MG TABLET PO SCH ×2 (09:56→20:26)
[2016-09-19] MEDS: Z GUARD REMEDY 2 OZ OINT TP SCH ×2 (09:56→20:27)
[2016-09-19] MEDS: INSULIN DETEMIR 100 UNIT/ML CARTRIDGE SQ SCH ×2 (09:59→20:25)
[2016-09-19 12:00] VITALS: BP 103/62
[2016-09-19] MEDS: PANTOPRAZOLE 40 MG VIAL IV SCH (12:21)
[2016-09-19 16:00] VITALS: BP 95/60
[2016-09-19] MEDS: MICAFUNGIN SODIUM 100 MG in IV NS 0.9% 100 ML IV SCH (16:56)
[2016-09-19] MEDS ORDERED: SECONDARY IV SET 1 EA INFUS.SET MC ONE (16:59)
[2016-09-19] MEDS ORDERED: IV SET PRIMARY PUMP SET 1 EA INFUS.SET MC ONE (17:02)
[2016-09-19 20:00] VITALS: BP 101/52
[2016-09-19] MEDS: ATORVASTATIN 10 MG TABLET PO SCH (21:17)
[2016-09-19] MEDS: POLYETHYLENE GLYCOL 3350 17 GM POWD.PACK PO SCH (21:17)
[2016-09-19] MEDS: DOCUSATE SODIUM LIQ 100 MG/10 ML UDC GT SCH (21:17)
[2016-09-20] VITALS: BP 114/63
[2016-09-20] MEDS: IV PREMIX D5W + KCL 1,000 ML IV PRN ×2 (01:37→18:45)
[2016-09-20 04:00] VITALS: BP 110/65
[2016-09-20] MEDS: MEROPENEM 500 MG in IV NS 0.9% 50 ML IV SCH ×3 (04:27→20:04)
[2016-09-20] MEDS: ALBUTEROL FS 2.5 MG/0.5 ML VIAL.NEB NEB SCH ×5 (04:29→19:43)
[2016-09-20] MEDS: IPRATROPIUM NEB FS 0.5 MG/2.5 ML AMPUL.NEB NEB SCH ×5 (04:29→19:43)
[2016-09-20] MEDS: METRONIDAZOLE 500MG/ NS 100ML 500 MG in PREMIX 1 EA IV SCH ×3 (05:02→20:04)
[2016-09-20] MEDS: BLOOD SUGAR DIAGNOSTIC 1 EACH STRIP IN SCH ×3 (05:02→17:02)
[2016-09-20] MEDS: INSULIN REGULAR, HUMAN 100 UNIT/ML 3 ML VIAL SQ PRN ×3 (05:03→17:03)
[2016-09-20 07:20] LABS: DIFF TOTAL % 100 %; EOSINOPHILS # (AUTO) 0.6 /CMM (0.0-0.7); EOSINOPHILS % (AUTO) 3.8 % (0.0-6.0); HEMATOCRIT 27 % (39-51); HEMOGLOBIN 8.5 g/dL (13.5-17.5); LYMPHOCYTES # (AUTO) 0.9 /CMM (0.8-4.8); LYMPHOCYTES % (AUTO) 5.7 % (20.0-44.0); MEAN CORPUSCULAR HEMOGLOBIN 28 PG (26.0-33.0); MEAN CORPUSCULAR HGB CONC 32 g/dl (31.0-36.0); MEAN CORPUSCULAR VOLUME 89 fL (80-96); MONOCYTES # (AUTO) 0.2 /CMM (0.1-1.30); MONOCYTES % (AUTO) 1.3 % (2.0-12.0); NEUTROPHILS # (AUTO) 14.8 /CMM (1.8-8.9); NEUTROPHILS % (AUTO) 89.2 % (43.0-81.0); PLATELET COUNT (AUTO) 119 /CMM (150-450); RED BLOOD CELL COUNT(AUTO) 2.99 MIL/uL (4.5-6.0); WHITE BLOOD COUNT (AUTO) 16.6 K/uL (4.3-11.0)
[2016-09-20 08:00] VITALS: BP 111/58
[2016-09-20 08:00] LABS: CALCIUM, SERUM 7.5 mg/dL (8.5-10.1); CREATININE 1.7 mg/dL (0.6-1.3); POTASSIUM 4.5 mmol/L (3.5-5.1)
[2016-09-20] MEDS: CHLORHEXIDINE GLUCONATE 15 ML UDC MM SCH ×2 (08:29→20:04)
[2016-09-20] MEDS: LACTOBACILLUS RHAMNOSUS GG 1 EACH CAP.SPRINK PO SCH ×2 (08:29→16:52)
[2016-09-20] MEDS: DRONEDARONE HYDROCHLORIDE 400 MG TABLET PO SCH ×2 (08:29→16:52)
[2016-09-20] MEDS: VITAMIN B COMP W-C 1 TAB TABLET PO SCH (08:29)
[2016-09-20] MEDS: SENNOSIDES/DOCUSATE SODIUM 1 TAB TABLET PO SCH (08:29)
[2016-09-20] MEDS: MONTELUKAST SODIUM (10MG) 10 MG TABLET PO SCH (08:29)
[2016-09-20] MEDS: ASCORBIC ACID 500 MG TABLET PO SCH (08:29)
[2016-09-20] MEDS: METOCLOPRAMIDE HCL 10 MG/2 ML VIAL IV SCH ×3 (08:30→16:52)
[2016-09-20] MEDS: methylPREDNISolone SOD SUCC 40 MG/ML VIAL IV SCH (08:30)
[2016-09-20] MEDS: HYDROGEL DRESSING 90 GM TUBE TP SCH (08:31)
[2016-09-20] MEDS: Z GUARD REMEDY 2 OZ OINT TP SCH ×2 (08:31→20:06)
[2016-09-20] MEDS: INSULIN DETEMIR 100 UNIT/ML CARTRIDGE SQ SCH ×2 (08:37→20:22)
[2016-09-20] MEDS: TRAMADOL HCL 50 MG TABLET PO SCH ×2 (08:37→20:24)
[2016-09-20] MEDS: PANTOPRAZOLE 40 MG VIAL IV SCH (11:12)
[2016-09-20 12:00] VITALS: BP 96/56
[2016-09-20] MEDS: GLYTROL 1,000 ML BAG GT PRN (13:06)
[2016-09-20] MEDS: MICAFUNGIN SODIUM 100 MG in IV NS 0.9% 100 ML IV SCH (15:13)
[2016-09-20 16:00] VITALS: BP 103/56
[2016-09-20 20:00] VITALS: BP 95/46
[2016-09-20] MEDS: DOCUSATE SODIUM LIQ 100 MG/10 ML UDC GT SCH (20:04)
== END 2016-09-20 23:08 | disposition short-term general hospital (02) | DRG 314 ==
LOC: ER 19:32 → TELE-TD 22:47 → TELE1 08-27 11:35 → TELE-TD 09-17 14:43 → TELE1 09-20 21:19
PROVIDERS: ADMIT Internal Medicine; ATTEND Internal Medicine
PROC: 5A1955Z Respiratory Ventilation, Greater than 96 Consecutive Hours (ICD-10-PCS; principal; 2016-08-26)
PROC: 0W3P8ZZ Control Bleeding in Gastrointestinal Tract, Via Natural or Artificial Opening Endoscopic (ICD-10-PCS; 2016-08-29)
PROC: 30233N1 Transfusion of Nonautologous Red Blood Cells into Peripheral Vein, Percutaneous Approach (ICD-10-PCS; 2016-09-03)
PROC: 05H633Z Insertion of Infusion Device into Left Subclavian Vein, Percutaneous Approach (ICD-10-PCS; 2016-09-03)
PROC: 0DH63UZ Insertion of Feeding Device into Stomach, Percutaneous Approach (ICD-10-PCS; 2016-09-07 11:14)
PROC: 05H533Z Insertion of Infusion Device into Right Subclavian Vein, Percutaneous Approach (ICD-10-PCS; 2016-09-16)
PROC: B546ZZA Ultrasonography of Right Subclavian Vein, Guidance (ICD-10-PCS; 2016-09-16)
DX: T80.211A Bloodstream infection due to central venous catheter, initial encounter (principal); B37.7 Candidal sepsis; J96.22 Acute and chronic respiratory failure with hypercapnia; G93.40 Encephalopathy, unspecified; K25.4 Chronic or unspecified gastric ulcer with hemorrhage; E43 Unspecified severe protein-calorie malnutrition; J69.0 Pneumonitis due to inhalation of food and vomit; J15.1 Pneumonia due to Pseudomonas; L89.153 Pressure ulcer of sacral region, stage 3; J44.1 Chronic obstructive pulmonary disease with (acute) exacerbation; Z99.11 Dependence on respirator [ventilator] status; I48.92 Unspecified atrial flutter; K22.10 Ulcer of esophagus without bleeding; K56.7 Ileus, unspecified; N17.9 Acute kidney failure, unspecified; E87.0 Hyperosmolality and hypernatremia; E87.2 Acidosis; J44.0 Chronic obstructive pulmonary disease with (acute) lower respiratory infection; J98.11 Atelectasis; N39.0 Urinary tract infection, site not specified; Y84.8 Other medical procedures as the cause of abnormal reaction of the patient, or of later complication, without mention of misadventure at the time of the procedure; Z93.0 Tracheostomy status; Z87.440 Personal history of urinary (tract) infections; Z87.891 Personal history of nicotine dependence; I25.10 Atherosclerotic heart disease of native coronary artery without angina pectoris; E11.42 Type 2 diabetes mellitus with diabetic polyneuropathy; E11.43 Type 2 diabetes mellitus with diabetic autonomic (poly)neuropathy; D63.8 Anemia in other chronic diseases classified elsewhere; K56.41 Fecal impaction; Y95 Nosocomial condition; B35.1 Tinea unguium; B86 Scabies; B96.5 Pseudomonas (aeruginosa) (mallei) (pseudomallei) as the cause of diseases classified elsewhere; D50.0 Iron deficiency anemia secondary to blood loss (chronic); E03.9 Hypothyroidism, unspecified; E11.649 Type 2 diabetes mellitus with hypoglycemia without coma; E66.9 Obesity, unspecified; E78.5 Hyperlipidemia, unspecified; E83.39 Other disorders of phosphorus metabolism; E86.0 Dehydration; G89.29 Other chronic pain; I10 Essential (primary) hypertension; I47.9 Paroxysmal tachycardia, unspecified; I48.0 Paroxysmal atrial fibrillation; I50.9 Heart failure, unspecified; K21.9 Gastro-esophageal reflux disease without esophagitis; K74.60 Unspecified cirrhosis of liver; L89.159 Pressure ulcer of sacral region, unspecified stage; L89.302 Pressure ulcer of unspecified buttock, stage 2; N20.0 Calculus of kidney; R13.12 Dysphagia, oropharyngeal phase; Z68.29 Body mass index [BMI] 29.0-29.9, adult; Z79.2 Long term (current) use of antibiotics; Z87.11 Personal history of peptic ulcer disease; Z87.442 Personal history of urinary calculi; E11.65 Type 2 diabetes mellitus with hyperglycemia
CPT/HCPCS: 31720; 36415; 36569; 36600; 43246; 70450-TC; 71010-TC; 74000-TC; 74230-TC; 74280-TC; 80048-TC; 80053-TC; 80076-TC; 80162-TC; 80170-TC; 80202-TC; 81000-TC; 82140-TC; 82728-TC; 82803-TC; 82962-TC; 83540-TC; 83605-TC; 83735-TC; 84100-TC; 84134-TC; 84443-TC; 84478-TC; 84484-TC; 85025-TC; 85027-TC; 85610-TC; 85730-TC; 86850-TC; 86901; 86921-TC; 87040-TC; 87070-TC; 87081-TC; 87086-TC; 87186-TC; 92611-TC; 93307-TC; 94002-TC; 94003-TC; 94640-TC; A4216; A4606; A4623; A4624; A6248; A6253; A6402; A6403; A7526; A9698; C9113; J0637; J1160; J1170; J1580; J1815; J1940; J1956; J2185; J2248; J2405; J2704; J2765; J2920; J3370; J3475; J3480; J3490; J7030; J7040; J7042; J7050; J7060; P9016-BL; Q9963; Z7610

== ENCOUNTER 2016-10-15 21:19 | Inpatient (IN) | payer MEDICARE, OTHER ==
[~2016-10-15] VITALS: Ht 170.2 cm; Wt 74.8 kg
[~2016-10-15 21:19] MED LIST changes: -AMIN30LI4 PO; -ERYT200S16 PO; -POTA20PA15 PO; -SPIR50TA3 PO; +VITA1TAB20 GT
[2016-10-15] MEDS ORDERED: IV NS 0.9% 1,000 ML BAG IV ONE ×2 (21:30→22:30)
[2016-10-15] MEDS ORDERED: IV NS 0.9% 1,000 ML ONE (21:44)
[2016-10-15] MEDS ORDERED: IV SET PRIMARY 1 EA INFUS.SET MC ONE ×2 (21:44→22:25)
[2016-10-15 21:45] LABS: BASOPHILS # (AUTO) 0.5 /CMM (0.0-0.2); BASOPHILS % (AUTO) 3.8 % (0.0-2.0); DIFF TOTAL % 100 %; EOSINOPHILS # (AUTO) 0.3 /CMM (0.0-0.7); EOSINOPHILS % (AUTO) 1.9 % (0.0-6.0); HEMATOCRIT 27 % (39-51); HEMOGLOBIN 8.9 g/dL (13.5-17.5); LYMPHOCYTES % (AUTO) 15.5 % (20.0-44.0); MEAN CORPUSCULAR HEMOGLOBIN 29 PG (26.0-33.0); MEAN CORPUSCULAR HGB CONC 33 g/dl (31.0-36.0); MEAN CORPUSCULAR VOLUME 89 fL (80-96); MONOCYTES # (AUTO) 0.6 /CMM (0.1-1.30); MONOCYTES % (AUTO) 4.6 % (2.0-12.0); NEUTROPHILS # (AUTO) 9.8 /CMM (1.8-8.9); NEUTROPHILS % (AUTO) 74.2 % (43.0-81.0); PLATELET COUNT (AUTO) 228 /CMM (150-450); RED BLOOD CELL COUNT(AUTO) 3.01 MIL/uL (4.5-6.0); WHITE BLOOD COUNT (AUTO) 13.2 K/uL (4.3-11.0)
[2016-10-15] MEDS ORDERED: MICAFUNGIN SODIUM 100 MG VIAL IV ONE (21:53)
[2016-10-15] MEDS ORDERED: IV SET PRIMARY PUMP SET 1 EA INFUS.SET MC ONE (21:58)
[2016-10-15] MEDS ORDERED: IV NS 0.9% 100 ML IV ONE (21:58)
[2016-10-15] MEDS ORDERED: MICAFUNGIN SODIUM 100 MG in IV NS 0.9% 100 ML IV ONE (22:00)
[2016-10-15 22:08] LABS: KETONES,URINE NEGATIVE (NEGATIVE); LEUKOCYTE ESTERASE ,URINE 3+ (NEGATIVE)
[2016-10-15 22:14] LABS: INR 1.05 (0.87-1.13); PROTHROMBIN TIME 11.4 SECS (9.5-12.7)
[2016-10-15 22:15] LABS: ADD UA MICROSCOPIC YES
[2016-10-15 22:17] LABS: ALANINE AMINOTRANSFERASE 19 U/L (12-78); ALBUMIN 2.2 g/dL (3.4-5.0); ANION GAP 11 (5-14); ASPARTATE AMINOTRANSFERASE 13 U/L (15-37); BILIRUBIN,DIRECT 0.2 mg/dL (0.0-0.2); BILIRUBIN,TOTAL 0.5 mg/dL (0.2-1.0); CALCIUM, SERUM 8.8 mg/dL (8.5-10.1); CARBON DIOXIDE 36 mmol/L (21-32); CHLORIDE 98 mmol/L (98-107); CREATININE 1.7 mg/dL (0.6-1.3); GLUCOSE 131 mg/dL (74-106); INDIRECT BILIRUBIN 0.3 mg/dL (0.0-1.1); POTASSIUM 4.8 mmol/L (3.5-5.1); SODIUM SERUM 140 mmol/L (136-145); TOTAL PROTEIN, SERUM 7.8 g/dL (6.4-8.2)
[2016-10-15 22:20] LABS: LACTIC ACID 2.3 mmol/L (0.4-2.0); UREA NITROGEN, BLOOD 96 mg/dL (7-18)
[2016-10-15 22:21] LABS: RBC,URINE 50-60 /HPF (0-2); WBC,URINE 40-50 /HPF (0-3)
[2016-10-15 22:22] LABS: ADD URINE CULTURE YES; MUCUS,URINE Rare /LPF (None Seen)
[2016-10-15 22:23] LABS: URINALYSIS COMMENT FEW WBC CLUMPING
[2016-10-15] MEDS ORDERED: IV NS 0.9% 2,000 ML ONE (22:25)
[2016-10-15] MEDS ORDERED: CEFTRIAXONE 1GM BAG (ER ONLY) 1 GM/50 ML PIGGYBACK IV ONE (22:30)
[2016-10-15 22:42] LABS: *LACTIC ACID REFLEX FLAG YES
[2016-10-15 23:00] VITALS: BP 124/69
[2016-10-16] VITALS: BP 124/69
[2016-10-16] MEDS ORDERED: ACETAMINOPHEN 650 MG/20.3 ML UDC GT PRN
[2016-10-16] MEDS ORDERED: TRAMADOL HCL 50 MG TABLET GT PRN
[2016-10-16] MEDS ORDERED: CEFTRIAXONE 1 G in IV D5W 50 ML IV SCH ×2
[2016-10-16] MEDS ORDERED: MAGNESIUM HYDROXIDE 30 ML UDC PO PRN
[2016-10-16] MEDS ORDERED: DEXTROSE 50%-WATER 50 ML DISP.SYRIN IV PRN
[2016-10-16] MEDS ORDERED: IV D5W 50 ML IV ONE (00:09)
[2016-10-16] MEDS ORDERED: CEFTRIAXONE 1 G VIAL ONE (00:09)
[2016-10-16] MEDS ORDERED: SECONDARY IV SET 1 EA INFUS.SET MC ONE ×4 (00:10→22:58)
[2016-10-16] MEDS ORDERED: MAGNESIUM HYDROXIDE 30 ML UDC ONE (00:16)
[2016-10-16] MEDS ORDERED: GLYTROL 1,000 ML BAG ONE (00:19)
[2016-10-16] MEDS ORDERED: IV NS 0.9% 250 ML IV ONE (00:20)
[2016-10-16] MEDS ORDERED: IV SET PRIMARY PUMP SET 1 EA INFUS.SET MC ONE (00:20)
[2016-10-16] MEDS: BLOOD SUGAR DIAGNOSTIC 1 EACH STRIP IN SCH ×5 (00:31→23:05)
[2016-10-16] MEDS: GLYTROL 1,000 ML BAG GT PRN ×2 (00:32→16:24)
[2016-10-16] MEDS: INSULIN REGULAR, HUMAN 100 UNIT/ML 3 ML VIAL SQ PRN ×4 (00:33→23:06)
[2016-10-16] MEDS ORDERED: ALBUTEROL FS 2.5 MG/3 ML VIAL.NEB ONE (00:37)
[2016-10-16] MEDS ORDERED: IPRATROPIUM NEB FS 0.5 MG/2.5 ML AMPUL.NEB ONE (00:37)
[2016-10-16] MEDS: IPRATROPIUM NEB FS 0.5 MG/2.5 ML AMPUL.NEB NEB SCH ×4 (01:38→20:09)
[2016-10-16] MEDS: ALBUTEROL FS 2.5 MG/3 ML VIAL.NEB NEB SCH ×4 (01:38→20:08)
[2016-10-16 04:00] VITALS: BP 97/43
[2016-10-16 08:00] VITALS: BP 107/44
[2016-10-16] MEDS ORDERED: PANT40SU GT (08:35)
[2016-10-16] MEDS ORDERED: INSU100V26 SQ (08:35)
[2016-10-16] MEDS ORDERED: NUT.237L30 GT (08:35)
[2016-10-16] MEDS ORDERED: SENN8.6T6 GT (08:35)
[2016-10-16] MEDS ORDERED: POLY17PO4 GT (08:35)
[2016-10-16] MEDS ORDERED: LACT1CAP7 GT (08:35)
[2016-10-16] MEDS ORDERED: TRAMADOL HCL 50 MG TABLET PO SCH (10:58)
[2016-10-16] MEDS ORDERED: TRAMADOL HCL 50 MG TABLET PO PRN (11:00)
[2016-10-16] MEDS ORDERED: GLYTROL 1,000 ML BAG GT SCH (11:00)
[2016-10-16] MEDS ORDERED: NA PHOS,M-B/NA PHOS,DI-BA 1 EA ENEMA RC PRN (11:00)
[2016-10-16] MEDS ORDERED: ACETAMINOPHEN 325 MG TABLET PO PRN (11:00)
[2016-10-16] MEDS ORDERED: IPRATROPIUM NEB FS 0.5 MG/2.5 ML AMPUL.NEB NEB PRN (11:00)
[2016-10-16] MEDS ORDERED: INSULIN REGULAR, HUMAN 100 UNIT/ML 3 ML VIAL SQ PRN (11:00)
[2016-10-16] MEDS ORDERED: ALBUTEROL FS 2.5 MG/3 ML VIAL.NEB NEB PRN (11:00)
[2016-10-16] MEDS ORDERED: Z GUARD REMEDY 2 OZ OINT TP PRN (11:00)
[2016-10-16] MEDS: PANTOPRAZOLE 40 MG TABLET.DR PO SCH (11:17)
[2016-10-16] MEDS: POLYETHYLENE GLYCOL 3350 17 GM POWD.PACK GT SCH (11:17)
[2016-10-16] MEDS: DRONEDARONE HYDROCHLORIDE 400 MG TABLET GT SCH ×2 (11:17→20:37)
[2016-10-16] MEDS: ACIDOPHILUS/BULGARICUS 1 EACH TAB.CHEW PO SCH (11:18)
[2016-10-16] MEDS: VITAMIN B COMP W-C 1 TAB TABLET PO SCH (11:21)
[2016-10-16 12:00] VITALS: BP 96/50
[2016-10-16] MEDS: Z GUARD REMEDY 2 OZ OINT TP SCH (12:40)
[2016-10-16 16:00] VITALS: BP_SYST 104; BP_SYST 109; BP_DIAS 54
[2016-10-16] MEDS ORDERED: AZTREONAM 1 G VIAL IM SCH (16:00)
[2016-10-16] MEDS: SENNOSIDES 8.6 MG TABLET GT SCH (16:24)
[2016-10-16] MEDS: AZTREONAM 1 G in IV NS 0.9% 100 ML IV SCH (16:51)
[2016-10-16] MEDS ORDERED: HYDROGEL DRESSING 90 GM TUBE TP PRN (18:00)
[2016-10-16 20:00] VITALS: BP 98/47
[2016-10-16] MEDS ORDERED: CEFEPIME 1 GM VIAL IV SCH (20:00)
[2016-10-16] MEDS ORDERED: CEFEPIME 1 GM in IV D5W 50 ML IV SCH (20:00)
[2016-10-16] MEDS ORDERED: CEFEPIME 1 GM VIAL IM SCH (21:00)
[2016-10-16] MEDS: ATORVASTATIN 10 MG TABLET GT SCH (22:25)
[2016-10-16] MEDS: MONTELUKAST SODIUM (10MG) 10 MG TABLET GT SCH (22:26)
[2016-10-16] MEDS: MICAFUNGIN SODIUM 100 MG in IV NS 0.9% 100 ML IV SCH (22:26)
[2016-10-17] VITALS: BP 100/48
[2016-10-17] MEDS: AZTREONAM 1 G in IV NS 0.9% 100 ML IV SCH ×2 (01:08→08:37)
[2016-10-17] MEDS ORDERED: IPRATROPIUM NEB FS 0.5 MG/2.5 ML AMPUL.NEB ONE (01:10)
[2016-10-17] MEDS: ALBUTEROL FS 2.5 MG/3 ML VIAL.NEB NEB SCH ×4 (01:20→19:53)
[2016-10-17] MEDS: IPRATROPIUM NEB FS 0.5 MG/2.5 ML AMPUL.NEB NEB SCH ×4 (01:20→19:53)
[2016-10-17 04:00] VITALS: BP 105/47
[2016-10-17] MEDS ORDERED: IV NS 0.9% 250 ML IV ONE (04:48)
[2016-10-17] MEDS: BLOOD SUGAR DIAGNOSTIC 1 EACH STRIP IN SCH ×3 (05:12→18:11)
[2016-10-17] MEDS: INSULIN REGULAR, HUMAN 100 UNIT/ML 3 ML VIAL SQ PRN ×3 (05:16→18:22)
[2016-10-17 08:00] VITALS: BP 104/54
[2016-10-17] MEDS: PANTOPRAZOLE 40 MG TABLET.DR PO SCH (08:35)
[2016-10-17] MEDS: GLYTROL 1,000 ML BAG GT PRN (08:35)
[2016-10-17] MEDS: VITAMIN B COMP W-C 1 TAB TABLET PO SCH (08:36)
[2016-10-17] MEDS: POLYETHYLENE GLYCOL 3350 17 GM POWD.PACK GT SCH (08:36)
[2016-10-17] MEDS: DRONEDARONE HYDROCHLORIDE 400 MG TABLET GT SCH ×2 (08:36→17:27)
[2016-10-17] MEDS: SENNOSIDES 8.6 MG TABLET GT SCH ×2 (08:36→17:29)
[2016-10-17] MEDS: Z GUARD REMEDY 2 OZ OINT TP SCH (08:38)
[2016-10-17] MEDS: ACIDOPHILUS/BULGARICUS 1 EACH TAB.CHEW PO SCH (08:55)
[2016-10-17 12:00] VITALS: BP 102/52
[2016-10-17] MEDS ORDERED: IV SET PRIMARY PUMP SET 1 EA INFUS.SET MC ONE (15:17)
[2016-10-17] MEDS ORDERED: IV NS 0.9% 1,000 ML IV PRN (15:30)
[2016-10-17] MEDS ORDERED: MEROPENEM 1 G in IV NS 0.9% 100 ML IV SCH (15:30)
[2016-10-17 15:42] LABS: CALCIUM, SERUM 8.5 mg/dL (8.5-10.1); CREATININE 1.4 mg/dL (0.6-1.3); POTASSIUM 3.6 mmol/L (3.5-5.1)
[2016-10-17 16:00] VITALS: BP 104/50
[2016-10-17] MEDS ORDERED: SECONDARY IV SET 1 EA INFUS.SET MC ONE (16:44)
[2016-10-17] MEDS: MEROPENEM 500 MG in IV NS 0.9% 50 ML IV SCH (16:48)
[2016-10-17] MEDS: MAGNESIUM HYDROXIDE 30 ML UDC GT PRN (18:09)
[2016-10-17 20:00] VITALS: BP 107/63
[2016-10-17] MEDS: MONTELUKAST SODIUM (10MG) 10 MG TABLET GT SCH (21:07)
[2016-10-17] MEDS: MICAFUNGIN SODIUM 100 MG in IV NS 0.9% 100 ML IV SCH (21:07)
[2016-10-17] MEDS: ATORVASTATIN 10 MG TABLET GT SCH (21:07)
[2016-10-18] VITALS: BP 94/47
[2016-10-18] MEDS: INSULIN REGULAR, HUMAN 100 UNIT/ML 3 ML VIAL SQ PRN ×3 (01:09→18:01)
[2016-10-18] MEDS: IPRATROPIUM NEB FS 0.5 MG/2.5 ML AMPUL.NEB NEB SCH ×4 (02:00→19:52)
[2016-10-18] MEDS: ALBUTEROL FS 2.5 MG/3 ML VIAL.NEB NEB SCH ×4 (02:00→19:53)
[2016-10-18] MEDS: MEROPENEM 500 MG in IV NS 0.9% 50 ML IV SCH ×2 (03:15→15:25)
[2016-10-18 04:00] VITALS: BP_SYST 105; BP_DIAS 62; BP_DIAS 64
[2016-10-18] MEDS: BLOOD SUGAR DIAGNOSTIC 1 EACH STRIP IN SCH ×4 (05:41→17:55)
[2016-10-18 06:42] LABS: CALCIUM, SERUM 8.8 mg/dL (8.5-10.1); CREATININE 1.3 mg/dL (0.6-1.3); POTASSIUM 3.6 mmol/L (3.5-5.1)
[2016-10-18 08:00] VITALS: BP 100/54
[2016-10-18] MEDS: PANTOPRAZOLE 40 MG TABLET.DR PO SCH (08:21)
[2016-10-18] MEDS: POLYETHYLENE GLYCOL 3350 17 GM POWD.PACK GT SCH (08:22)
[2016-10-18] MEDS: DRONEDARONE HYDROCHLORIDE 400 MG TABLET GT SCH ×2 (08:22→16:35)
[2016-10-18] MEDS: SENNOSIDES 8.6 MG TABLET GT SCH ×2 (08:23→16:36)
[2016-10-18] MEDS: VITAMIN B COMP W-C 1 TAB TABLET PO SCH (08:23)
[2016-10-18] MEDS: ACIDOPHILUS/BULGARICUS 1 EACH TAB.CHEW PO SCH (08:23)
[2016-10-18] MEDS: Z GUARD REMEDY 2 OZ OINT TP SCH (08:24)
[2016-10-18] MEDS ORDERED: IV NS 0.9% 1,000 ML ONE (08:58)
[2016-10-18 12:00] VITALS: BP 104/54
[2016-10-18] MEDS ORDERED: IV NS 0.9% 1,000 ML IV PRN (13:40)
[2016-10-18] MEDS ORDERED: NA PHOS,M-B/NA PHOS,DI-BA 1 EA ENEMA RC PRN (15:00)
[2016-10-18] MEDS: BISACODYL SUPP (10 MG) 10 MG/SUPP.RECT SUPP.RECT RC PRN (15:08)
[2016-10-18 16:00] VITALS: BP 115/48
[2016-10-18] MEDS: GLYTROL 1,000 ML BAG GT PRN (18:20)
[2016-10-18 20:00] VITALS: BP 97/54
[2016-10-18] MEDS: ATORVASTATIN 10 MG TABLET GT SCH (22:01)
[2016-10-18] MEDS: MICAFUNGIN SODIUM 100 MG in IV NS 0.9% 100 ML IV SCH (22:02)
[2016-10-18] MEDS: MONTELUKAST SODIUM (10MG) 10 MG TABLET GT SCH (22:02)
[2016-10-19] VITALS: BP 105/51
[2016-10-19] MEDS: IPRATROPIUM NEB FS 0.5 MG/2.5 ML AMPUL.NEB NEB SCH ×4 (01:13→19:22)
[2016-10-19] MEDS: ALBUTEROL FS 2.5 MG/3 ML VIAL.NEB NEB SCH ×4 (01:14→19:22)
[2016-10-19] MEDS: BLOOD SUGAR DIAGNOSTIC 1 EACH STRIP IN SCH ×5 (01:28→23:11)
[2016-10-19] MEDS: INSULIN REGULAR, HUMAN 100 UNIT/ML 3 ML VIAL SQ PRN ×4 (01:29→23:11)
[2016-10-19] MEDS: MEROPENEM 500 MG in IV NS 0.9% 50 ML IV SCH ×2 (03:34→15:17)
[2016-10-19 04:00] VITALS: BP 112/58
[2016-10-19 06:24] LABS: BASOPHILS % (AUTO) 0.4 % (0.0-2.0); DIFF TOTAL % 100 %; EOSINOPHILS # (AUTO) 0.2 /CMM (0.0-0.7); EOSINOPHILS % (AUTO) 2.1 % (0.0-6.0); HEMATOCRIT 26 % (39-51); HEMOGLOBIN 8.4 g/dL (13.5-17.5); LYMPHOCYTES # (AUTO) 1.5 /CMM (0.8-4.8); LYMPHOCYTES % (AUTO) 13.1 % (20.0-44.0); MEAN CORPUSCULAR HEMOGLOBIN 29 PG (26.0-33.0); MEAN CORPUSCULAR HGB CONC 32 g/dl (31.0-36.0); MEAN CORPUSCULAR VOLUME 91 fL (80-96); MONOCYTES # (AUTO) 0.8 /CMM (0.1-1.30); MONOCYTES % (AUTO) 7.3 % (2.0-12.0); NEUTROPHILS # (AUTO) 8.6 /CMM (1.8-8.9); NEUTROPHILS % (AUTO) 77.1 % (43.0-81.0); PLATELET COUNT (AUTO) 347 /CMM (150-450); RED BLOOD CELL COUNT(AUTO) 2.87 MIL/uL (4.5-6.0); WHITE BLOOD COUNT (AUTO) 11.1 K/uL (4.3-11.0)
[2016-10-19 08:00] VITALS: BP_SYST 101; BP_SYST 119; BP_DIAS 52; BP_DIAS 67
[2016-10-19] MEDS: DRONEDARONE HYDROCHLORIDE 400 MG TABLET GT SCH ×2 (08:09→17:18)
[2016-10-19] MEDS: POLYETHYLENE GLYCOL 3350 17 GM POWD.PACK GT SCH (08:09)
[2016-10-19] MEDS: PANTOPRAZOLE 40 MG TABLET.DR PO SCH (08:09)
[2016-10-19] MEDS: Z GUARD REMEDY 2 OZ OINT TP SCH (08:10)
[2016-10-19] MEDS: VITAMIN B COMP W-C 1 TAB TABLET PO SCH (08:10)
[2016-10-19] MEDS: ACIDOPHILUS/BULGARICUS 1 EACH TAB.CHEW PO SCH (08:10)
[2016-10-19] MEDS: SENNOSIDES 8.6 MG TABLET GT SCH ×2 (08:10→17:18)
[2016-10-19 12:00] VITALS: BP 116/50
[2016-10-19 16:00] VITALS: BP 112/59
[2016-10-19 20:00] VITALS: BP 95/47
[2016-10-19] MEDS: MICAFUNGIN SODIUM 100 MG in IV NS 0.9% 100 ML IV SCH (21:01)
[2016-10-19] MEDS: MONTELUKAST SODIUM (10MG) 10 MG TABLET GT SCH (21:01)
[2016-10-19] MEDS: ATORVASTATIN 10 MG TABLET GT SCH (21:01)
[2016-10-20] VITALS (7 sets, daily range): BP systolic 99–116; BP diastolic 46–60
[2016-10-20] MEDS ORDERED: IV NS 0.9% 250 ML IV ONE ×2 (00:30→19:23)
[2016-10-20] MEDS: ALBUTEROL FS 2.5 MG/3 ML VIAL.NEB NEB SCH ×4 (01:11→19:39)
[2016-10-20] MEDS: IPRATROPIUM NEB FS 0.5 MG/2.5 ML AMPUL.NEB NEB SCH ×4 (01:11→19:39)
[2016-10-20] MEDS: MEROPENEM 500 MG in IV NS 0.9% 50 ML IV SCH ×2 (03:14→15:28)
[2016-10-20] MEDS: GLYTROL 1,000 ML BAG GT PRN ×2 (04:54→21:04)
[2016-10-20] MEDS: INSULIN REGULAR, HUMAN 100 UNIT/ML 3 ML VIAL SQ PRN ×3 (05:04→17:55)
[2016-10-20] MEDS: BLOOD SUGAR DIAGNOSTIC 1 EACH STRIP IN SCH ×3 (05:04→17:52)
[2016-10-20] MEDS: PANTOPRAZOLE 40 MG TABLET.DR PO SCH ×2 (08:19→09:08)
[2016-10-20] MEDS: POLYETHYLENE GLYCOL 3350 17 GM POWD.PACK GT SCH (09:08)
[2016-10-20] MEDS: VITAMIN B COMP W-C 1 TAB TABLET PO SCH (09:08)
[2016-10-20] MEDS: DRONEDARONE HYDROCHLORIDE 400 MG TABLET GT SCH ×2 (09:08→16:57)
[2016-10-20] MEDS: ACIDOPHILUS/BULGARICUS 1 EACH TAB.CHEW PO SCH (09:08)
[2016-10-20] MEDS: Z GUARD REMEDY 2 OZ OINT TP SCH (09:09)
[2016-10-20] MEDS: SENNOSIDES 8.6 MG TABLET GT SCH ×2 (09:14→16:57)
[2016-10-20] MEDS: MONTELUKAST SODIUM (10MG) 10 MG TABLET GT SCH (21:03)
[2016-10-20] MEDS: MICAFUNGIN SODIUM 100 MG in IV NS 0.9% 100 ML IV SCH (21:03)
[2016-10-20] MEDS: ATORVASTATIN 10 MG TABLET GT SCH (21:03)
[2016-10-21] VITALS (8 sets, daily range): BP systolic 96–125; BP diastolic 52–78
[2016-10-21] MEDS: INSULIN REGULAR, HUMAN 100 UNIT/ML 3 ML VIAL SQ PRN ×4 (00:09→23:37)
[2016-10-21] MEDS: BLOOD SUGAR DIAGNOSTIC 1 EACH STRIP IN SCH ×5 (00:10→23:35)
[2016-10-21] MEDS: IPRATROPIUM NEB FS 0.5 MG/2.5 ML AMPUL.NEB NEB SCH ×4 (02:32→19:52)
[2016-10-21] MEDS: ALBUTEROL FS 2.5 MG/3 ML VIAL.NEB NEB SCH ×4 (02:32→19:52)
[2016-10-21] MEDS: MEROPENEM 500 MG in IV NS 0.9% 50 ML IV SCH ×2 (03:05→15:34)
[2016-10-21] MEDS: Z GUARD REMEDY 2 OZ OINT TP SCH (08:25)
[2016-10-21] MEDS: SENNOSIDES 8.6 MG TABLET GT SCH ×2 (08:25→16:31)
[2016-10-21] MEDS: VITAMIN B COMP W-C 1 TAB TABLET PO SCH (08:25)
[2016-10-21] MEDS: DRONEDARONE HYDROCHLORIDE 400 MG TABLET GT SCH ×2 (08:25→16:31)
[2016-10-21] MEDS: POLYETHYLENE GLYCOL 3350 17 GM POWD.PACK GT SCH (08:25)
[2016-10-21] MEDS: ACIDOPHILUS/BULGARICUS 1 EACH TAB.CHEW PO SCH (08:25)
[2016-10-21] MEDS: PANTOPRAZOLE 40 MG TABLET.DR PO SCH (08:25)
[2016-10-21 08:43] LABS: BASOPHILS # (AUTO) 0.1 /CMM (0.0-0.2); BASOPHILS % (AUTO) 0.6 % (0.0-2.0); DIFF TOTAL % 100 %; EOSINOPHILS # (AUTO) 0.3 /CMM (0.0-0.7); EOSINOPHILS % (AUTO) 2.3 % (0.0-6.0); HEMATOCRIT 24 % (39-51); HEMOGLOBIN 7.5 g/dL (13.5-17.5); LYMPHOCYTES # (AUTO) 1.5 /CMM (0.8-4.8); LYMPHOCYTES % (AUTO) 13.1 % (20.0-44.0); MEAN CORPUSCULAR HEMOGLOBIN 29 PG (26.0-33.0); MEAN CORPUSCULAR HGB CONC 32 g/dl (31.0-36.0); MEAN CORPUSCULAR VOLUME 91 fL (80-96); MONOCYTES # (AUTO) 0.9 /CMM (0.1-1.30); MONOCYTES % (AUTO) 7.6 % (2.0-12.0); NEUTROPHILS # (AUTO) 8.7 /CMM (1.8-8.9); NEUTROPHILS % (AUTO) 76.4 % (43.0-81.0); PLATELET COUNT (AUTO) 374 /CMM (150-450); WHITE BLOOD COUNT (AUTO) 11.4 K/uL (4.3-11.0)
[2016-10-21 09:18] LABS: ALBUMIN 1.6 g/dL (3.4-5.0); BILIRUBIN,TOTAL 0.4 mg/dL (0.2-1.0); CALCIUM, SERUM 8.6 mg/dL (8.5-10.1); CREATININE 1.3 mg/dL (0.6-1.3); POTASSIUM 3.2 mmol/L (3.5-5.1); TOTAL PROTEIN, SERUM 7.2 g/dL (6.4-8.2)
[2016-10-21 09:23] LABS: RETICULOCYTE COUNT 2.4 % (0.6-2.5)
[2016-10-21 09:43] LABS: %FREE PSA 38.5 % (0-10); FREE PSA 2.01 ng/mL (0.00-45); THYROID STIMULATING HORMONE 1.708 uIU/mL (0.358-3.74); URIC ACID 4.7 mg/dL (2.6-7.2)
[2016-10-21 10:03] LABS: ERYTHROCYTE SEDIMENTATION RATE > 140 MM/HR (0-20)
[2016-10-21] MEDS ORDERED: IV NS 0.9% 250 ML IV ONE (12:32)
[2016-10-21] MEDS ORDERED: BLOOD IV SET 1 EA INFUS.SET MC ONE (12:32)
[2016-10-21] MEDS ORDERED: IV D5/0.45 NACL 1,000 ML IV ONE (13:00)
[2016-10-21] MEDS: GLYTROL 1,000 ML BAG GT PRN (18:28)
[2016-10-21] MEDS: MICAFUNGIN SODIUM 100 MG in IV NS 0.9% 100 ML IV SCH (21:11)
[2016-10-21] MEDS: MONTELUKAST SODIUM (10MG) 10 MG TABLET GT SCH (21:11)
[2016-10-21] MEDS: ATORVASTATIN 10 MG TABLET GT SCH (21:11)
[2016-10-21] MEDS ORDERED: SECONDARY IV SET 1 EA INFUS.SET MC ONE (21:14)
[2016-10-21] MEDS: MAGNESIUM HYDROXIDE 30 ML UDC GT PRN (23:35)
[2016-10-22] VITALS: BP 92/48
[2016-10-22] MEDS: BISACODYL SUPP (10 MG) 10 MG/SUPP.RECT SUPP.RECT RC PRN (02:19)
[2016-10-22] MEDS: IPRATROPIUM NEB FS 0.5 MG/2.5 ML AMPUL.NEB NEB SCH ×4 (02:36→19:32)
[2016-10-22] MEDS: ALBUTEROL FS 2.5 MG/3 ML VIAL.NEB NEB SCH ×4 (02:36→19:32)
[2016-10-22] MEDS: MEROPENEM 500 MG in IV NS 0.9% 50 ML IV SCH ×2 (03:37→16:15)
[2016-10-22] MEDS ORDERED: SECONDARY IV SET 1 EA INFUS.SET MC ONE (03:38)
[2016-10-22 04:00] VITALS: BP 104/59
[2016-10-22] MEDS: BLOOD SUGAR DIAGNOSTIC 1 EACH STRIP IN SCH ×4 (05:30→23:59)
[2016-10-22] MEDS: INSULIN REGULAR, HUMAN 100 UNIT/ML 3 ML VIAL SQ PRN ×4 (05:31→23:58)
[2016-10-22 07:06] LABS: CALCIUM, SERUM 8.3 mg/dL (8.5-10.1); CREATININE 1.2 mg/dL (0.6-1.3); POTASSIUM 3.4 mmol/L (3.5-5.1)
[2016-10-22 07:30] LABS: BASOPHILS # (AUTO) 0.1 /CMM (0.0-0.2); BASOPHILS % (AUTO) 0.7 % (0.0-2.0); DIFF TOTAL % 100 %; EOSINOPHILS # (AUTO) 0.4 /CMM (0.0-0.7); EOSINOPHILS % (AUTO) 3.9 % (0.0-6.0); HEMATOCRIT 28 % (39-51); HEMOGLOBIN 8.9 g/dL (13.5-17.5); LYMPHOCYTES # (AUTO) 1.4 /CMM (0.8-4.8); LYMPHOCYTES % (AUTO) 13.1 % (20.0-44.0); MEAN CORPUSCULAR HEMOGLOBIN 29 PG (26.0-33.0); MEAN CORPUSCULAR HGB CONC 32 g/dl (31.0-36.0); MEAN CORPUSCULAR VOLUME 90 fL (80-96); MONOCYTES # (AUTO) 0.8 /CMM (0.1-1.30); NEUTROPHILS # (AUTO) 7.9 /CMM (1.8-8.9); NEUTROPHILS % (AUTO) 74.3 % (43.0-81.0); PLATELET COUNT (AUTO) 390 /CMM (150-450); RED BLOOD CELL COUNT(AUTO) 3.07 MIL/uL (4.5-6.0); WHITE BLOOD COUNT (AUTO) 10.6 K/uL (4.3-11.0)
[2016-10-22 08:00] VITALS: BP 104/58
[2016-10-22] MEDS: Z GUARD REMEDY 2 OZ OINT TP SCH (08:26)
[2016-10-22] MEDS: PANTOPRAZOLE 40 MG TABLET.DR PO SCH (08:29)
[2016-10-22] MEDS: VITAMIN B COMP W-C 1 TAB TABLET PO SCH (08:29)
[2016-10-22] MEDS: SENNOSIDES 8.6 MG TABLET GT SCH ×2 (08:29→16:12)
[2016-10-22] MEDS: DRONEDARONE HYDROCHLORIDE 400 MG TABLET GT SCH ×2 (08:29→16:12)
[2016-10-22] MEDS: ACIDOPHILUS/BULGARICUS 1 EACH TAB.CHEW PO SCH (08:29)
[2016-10-22] MEDS: POLYETHYLENE GLYCOL 3350 17 GM POWD.PACK GT SCH (08:29)
[2016-10-22] MEDS ORDERED: DOSE PER PHARMACY (MD SPECIFY MEDICATION) 1 EA XX PRN (10:30)
[2016-10-22] MEDS ORDERED: POTASSIUM CHLORIDE 20 MEQ POWDER PACKET GT ONE (10:30)
[2016-10-22] MEDS: GLYTROL 1,000 ML BAG GT PRN (11:12)
[2016-10-22 12:00] VITALS: BP 102/50
[2016-10-22] MEDS ORDERED: SULFAMETHOXAZOLE/TRIMETHOPRIM 15 ML in IV D5W 250 ML IV SCH ×2 (13:00→22:00)
[2016-10-22 16:00] VITALS: BP 99/53
[2016-10-22 20:00] VITALS: BP 100/49
[2016-10-22] MEDS: ATORVASTATIN 10 MG TABLET GT SCH (21:31)
[2016-10-22] MEDS: MONTELUKAST SODIUM (10MG) 10 MG TABLET GT SCH (21:31)
[2016-10-22] MEDS: MICAFUNGIN SODIUM 100 MG in IV NS 0.9% 100 ML IV SCH (22:51)
[2016-10-23] VITALS: BP 100/56
[2016-10-23] MEDS: ALBUTEROL FS 2.5 MG/3 ML VIAL.NEB NEB SCH ×4 (01:22→19:34)
[2016-10-23] MEDS: IPRATROPIUM NEB FS 0.5 MG/2.5 ML AMPUL.NEB NEB SCH ×4 (01:22→19:34)
[2016-10-23] MEDS ORDERED: IV NS 0.9% 250 ML IV ONE (03:50)
[2016-10-23 04:00] VITALS: BP 99/52
[2016-10-23] MEDS: MEROPENEM 500 MG in IV NS 0.9% 50 ML IV SCH ×2 (04:02→16:28)
[2016-10-23 05:09] LABS: VIT D, 25-HYDROXY 22.5 ng/mL (30.0-100.0)
[2016-10-23] MEDS: BLOOD SUGAR DIAGNOSTIC 1 EACH STRIP IN SCH ×4 (05:40→23:34)
[2016-10-23 06:57] LABS: CALCIUM, SERUM 8.4 mg/dL (8.5-10.1); CREATININE 1.1 mg/dL (0.6-1.3); POTASSIUM 3.7 mmol/L (3.5-5.1)
[2016-10-23 08:00] VITALS: BP 113/50
[2016-10-23] MEDS: ACIDOPHILUS/BULGARICUS 1 EACH TAB.CHEW PO SCH (08:47)
[2016-10-23] MEDS: VITAMIN B COMP W-C 1 TAB TABLET PO SCH (08:47)
[2016-10-23] MEDS: PANTOPRAZOLE 40 MG TABLET.DR PO SCH (08:47)
[2016-10-23] MEDS: POLYETHYLENE GLYCOL 3350 17 GM POWD.PACK GT SCH (08:47)
[2016-10-23] MEDS: DRONEDARONE HYDROCHLORIDE 400 MG TABLET GT SCH ×2 (08:48→16:29)
[2016-10-23] MEDS: SENNOSIDES 8.6 MG TABLET GT SCH ×2 (08:50→16:28)
[2016-10-23] MEDS: Z GUARD REMEDY 2 OZ OINT TP SCH (09:59)
[2016-10-23] MEDS: SULFAMETHOXAZOLE/TRIMETHOPRIM 15 ML in IV D5W 250 ML IV SCH ×3 (10:06→23:35)
[2016-10-23 12:00] VITALS: BP 107/52
[2016-10-23 13:12] LABS: *SPE ALBUMIN 2.1 g/dL (2.9-4.4)
[2016-10-23 16:00] VITALS: BP 108/52
[2016-10-23] MEDS: GLYTROL 1,000 ML BAG GT PRN (18:49)
[2016-10-23 20:00] VITALS: BP 105/56
[2016-10-23] MEDS: ATORVASTATIN 10 MG TABLET GT SCH (21:33)
[2016-10-23] MEDS: MONTELUKAST SODIUM (10MG) 10 MG TABLET GT SCH (21:33)
[2016-10-23] MEDS: MICAFUNGIN SODIUM 100 MG in IV NS 0.9% 100 ML IV SCH (21:34)
[2016-10-23] MEDS: INSULIN REGULAR, HUMAN 100 UNIT/ML 3 ML VIAL SQ PRN (23:36)
[2016-10-24] VITALS: BP 112/63
[2016-10-24] MEDS: ALBUTEROL FS 2.5 MG/3 ML VIAL.NEB NEB SCH ×3 (00:58→13:55)
[2016-10-24] MEDS: IPRATROPIUM NEB FS 0.5 MG/2.5 ML AMPUL.NEB NEB SCH ×3 (00:58→13:55)
[2016-10-24] MEDS: GLYTROL 1,000 ML BAG GT PRN (03:39)
[2016-10-24 04:00] VITALS: BP 101/56
[2016-10-24] MEDS: MEROPENEM 500 MG in IV NS 0.9% 50 ML IV SCH (04:48)
[2016-10-24] MEDS: BLOOD SUGAR DIAGNOSTIC 1 EACH STRIP IN SCH ×2 (05:51→11:52)
[2016-10-24] MEDS: INSULIN REGULAR, HUMAN 100 UNIT/ML 3 ML VIAL SQ PRN (05:55)
[2016-10-24 08:00] VITALS: BP 104/59
[2016-10-24] MEDS: Z GUARD REMEDY 2 OZ OINT TP SCH (09:00)
[2016-10-24] MEDS: VITAMIN B COMP W-C 1 TAB TABLET PO SCH (09:03)
[2016-10-24] MEDS: PANTOPRAZOLE 40 MG TABLET.DR PO SCH (09:03)
[2016-10-24] MEDS: POLYETHYLENE GLYCOL 3350 17 GM POWD.PACK GT SCH (09:03)
[2016-10-24] MEDS: ACIDOPHILUS/BULGARICUS 1 EACH TAB.CHEW PO SCH (09:03)
[2016-10-24] MEDS: DRONEDARONE HYDROCHLORIDE 400 MG TABLET GT SCH (09:03)
[2016-10-24] MEDS: SENNOSIDES 8.6 MG TABLET GT SCH (09:08)
[2016-10-24] MEDS: SULFAMETHOXAZOLE/TRIMETHOPRIM 15 ML in IV D5W 250 ML IV SCH (09:08)
[2016-10-24 12:00] VITALS: BP 104/59
== END 2016-10-24 16:00 | disposition short-term general hospital (02) | DRG 853 ==
LOC: ER 21:21 → TELE-TD 22:18 → TELE1 10-22 17:16
PROVIDERS: ADMIT Internal Medicine; ATTEND Internal Medicine
PROC: 5A1955Z Respiratory Ventilation, Greater than 96 Consecutive Hours (ICD-10-PCS; principal; 2016-10-15)
PROC: 30233N1 Transfusion of Nonautologous Red Blood Cells into Peripheral Vein, Percutaneous Approach (ICD-10-PCS; 2016-10-21)
PROC: 0KBP0ZZ Excision of Left Hip Muscle, Open Approach (ICD-10-PCS; 2016-10-23)
PROC: 0KBN0ZZ Excision of Right Hip Muscle, Open Approach (ICD-10-PCS; 2016-10-23)
DX: A41.50 Gram-negative sepsis, unspecified (principal); G93.40 Encephalopathy, unspecified; L89.153 Pressure ulcer of sacral region, stage 3; L89.313 Pressure ulcer of right buttock, stage 3; J96.11 Chronic respiratory failure with hypoxia; Z99.11 Dependence on respirator [ventilator] status; J96.12 Chronic respiratory failure with hypercapnia; I48.92 Unspecified atrial flutter; J44.0 Chronic obstructive pulmonary disease with (acute) lower respiratory infection; N17.9 Acute kidney failure, unspecified; E87.0 Hyperosmolality and hypernatremia; L03.116 Cellulitis of left lower limb; Z93.0 Tracheostomy status; Z93.1 Gastrostomy status; Z87.891 Personal history of nicotine dependence; Y95 Nosocomial condition; K56.41 Fecal impaction; D63.8 Anemia in other chronic diseases classified elsewhere; N18.3 Chronic kidney disease, stage 3 (moderate); Z79.899 Other long term (current) drug therapy; I25.10 Atherosclerotic heart disease of native coronary artery without angina pectoris; E11.22 Type 2 diabetes mellitus with diabetic chronic kidney disease; E78.5 Hyperlipidemia, unspecified; I12.9 Hypertensive chronic kidney disease with stage 1 through stage 4 chronic kidney disease, or unspecified chronic kidney disease; I48.0 Paroxysmal atrial fibrillation; I50.9 Heart failure, unspecified; K21.9 Gastro-esophageal reflux disease without esophagitis; L89.521 Pressure ulcer of left ankle, stage 1; N20.0 Calculus of kidney; R13.10 Dysphagia, unspecified
CPT/HCPCS: 31720; 36415; 71010-TC; 74000-TC; 80048-TC; 80053-TC; 80076-TC; 81000-TC; 82272-TC; 82306; 82378; 82728-TC; 82746; 82962-TC; 83540-TC; 83605-TC; 83615-TC; 84153-TC; 84154-TC; 84155; 84165; 84443-TC; 84550-TC; 85025-TC; 85045-TC; 85652-TC; 85730-TC; 86850-TC; 86921-TC; 87040-TC; 87081-TC; 87086-TC; 87186-TC; 94003-TC; 94760-TC; 94799-TC; A4216; A4606; A4623; A6248; A6253; A6402; A6403; J0692; J0696; J1815; J2185; J2248; J3490; J7030; J7050; J7060; P9016-BL; Z7610